=== PATIENT | female | born 1960 | race Caucasian/White ===

== ENCOUNTER 2017-05-13 15:25 | Emergency (ER) | payer OTHER ==
[~2017-05-13] VITALS: Ht 157.5 cm; Wt 72.5 kg
[~2017-05-13 15:25] MED LIST: ASPI-664 PO; HYD25 PO; MECL25TA2 PO; NITR-58 PO; ONDA4TAB35 PO; PHEN-538 PO; SIMV20TA PO
[2017-05-13 15:29] VITALS: Ht 157.5 cm; Wt 72.5 kg
[2017-05-13] MEDS ORDERED: ASPIRIN 325 MG TAB PO STA (16:17)
[2017-05-13 16:42] LABS: BASOPHILS % 0.4 % (0.0-2.0); EOSINOPHILS % 0.5 % (0.0-7.0); HEMATOCRIT 34.4 % (37.0-47.0); HEMOGLOBIN 11.3 g/dl (12.0-16.0); LYMPHOCYTES % 34.8 % (15.0-51.0); MEAN CORPUSCULAR HEMOGLOBIN 31.2 pg (29.0-33.0); MEAN CORPUSCULAR HGB CONC 32.8 g/dl (32.0-37.0); MEAN PLATELET VOLUME 9.2 fl (7.4-10.4); MONOCYTE # 0.5 10^3/ul (0.3-0.9); NEUTROPHILS % 55.9 % (39.0-77.0); PLATELET COUNT 187 10^3/UL (140-415); RED BLOOD COUNT 3.62 10^6/ul (4.20-5.40); RED CELL DISTRIBUTION WIDTH 12.3 % (11.5-14.5); WHITE BLOOD COUNT 5.6 10^3/ul (4.8-10.8)
[2017-05-13 16:49] LABS: ANION GAP 14 (8-16); BLOOD UREA NITROGEN 12 mg/dl (7-20); CALCIUM 9.1 mg/dl (8.4-10.2); CARBON DIOXIDE 22 mmol/L (21-31); CHLORIDE 108 mmol/L (97-110); CREATININE 0.73 mg/dl (0.44-1.00); GLUCOSE 94 mg/dl (70-220); POTASSIUM 3.3 mmol/L (3.5-5.1); SODIUM 141 mmol/L (135-144)
--- NOTE | 2017-05-13 16:51 | RADRPT ---
PROCEDURE: XR Chest 1 View. CLINICAL INDICATION: Chest pain TECHNIQUE: AP view of the chest was obtained. COMPARISON: None. FINDINGS: The heart size is within normal limits. Calcified atherosclerosis is noted in the aorta. Elevated r ight hemidiaphragm is identified. No consolidations are identified. No pneumothorax is seen. [place] us structures are intact. IMPRESSION: Calcified atherosclerosis in the aorta. Lated right hemidiaphragm. Clear lungs. RPTAT: AA .Viraj Hernandez MD, Date Time Electronically viewed and signed by .Viraj Hernandez MD, on 05/13/2017 16:50 .P/
[2017-05-13 17:01] LABS: B-TYPE NATRIURETIC PEPTIDE 58 PG/ML (0-125)
[2017-05-13] MEDS ORDERED: AMLO-147 PO (17:02)
[2017-05-13] MEDS ORDERED: LOSA25TA5 PO (17:03)
[2017-05-13] MEDS ORDERED: ASPI81TA50 PO (17:03)
[2017-05-13 17:10] LABS: TROPONIN-I < 0.012 ng/ml (0.00-0.12)
[2017-05-13] MEDS ORDERED: LIDOCAINE/MYLANTA 40 ML BTL PO ONE (18:00)
[2017-05-13] MEDS ORDERED: RANI150T9 PO (18:43)
--- NOTE | 2017-05-13 19:25 | ERD ---
ER Documentation Chief Complaint Date/Time DATE: 05/13/17 TIME: 19:20 Chief Complaint Sent from MD for eval chest pain and SOB with abnormal labs HPI This 56-year-old female presents for substernal chest pain described as a burning pain that is been on and off for 3 days. She has some shortness of breath with it. Denies nausea or vomiting. No radiation ROS All systems reviewed and are negative except as per history of present illness. Medications Home Meds Active Scripts Ranitidine Hcl* (Zantac*) 150 Mg Tablet, 150 MG PO BID, #60 TAB Prov:MARCELAJALYN 05/13/17 Reported Medications Aspirin (Aspir-Low) 81 Mg Tablet.dr, 81 MG PO DAILY 05/13/17 Losartan Potassium* (Losartan Potassium*) 25 Mg Tablet, 25 MG PO DAILY, TAB 05/13/17 Amlodipine Besylate* (Amlodipine Besylate*) 10 Mg Tablet, 10 MG PO DAILY, #30 TAB 05/13/17 Simvastatin* (Zocor*) 20 Mg Tablet, 20 MG PO HS, TAB 08/03/15 Discontinued Reported Medications Aspirin* (Aspirin* (EC)) 81 Mg Tablet.dr, 81 MG PO DAILY, TAB 08/03/15 Hydrochlorothiazide* (Hydrochlorothiazide*) 25 Mg Tab, 25 MG PO DAILY, TAB 08/03/15 Discontinued Scripts Phenazopyridine Hcl* (Pyridium*) 200 Mg Tab, 200 MG PO TID Y for DYSURIA, #3 TAB Prov:MICA MOHAN MD 08/03/15 Nitrofurantoin Monohyd Macrocr* (Macrobid*) 100 Mg Capsr, 100 MG PO HS for 7 Days Prov:MICA MOHAN MD 08/03/15 Ondansetron Hcl* (Zofran* ODT) 4 mg -ODT Tab.disper, 4 MG PO Q6 Y for NAUSEA AND /OR VOMITING, #10 TAB Prov:MICA MOHAN MD 08/03/15 Meclizine Hcl* (Antivert*) 25 Mg Tablet, 25 MG PO Q6H, #20 TAB Prov:MICA MOHAN MD 08/03/15 Allergies Allergies: Coded Allergies: No Known Allergy (Unverified , 05/13/17) PMhx/Soc History of Surgery: Yes (vaginal cysts?) Anesthesia Reaction: No Hx Neurological Disorder: No Hx Respiratory Disorders: No Hx Cardiac Disorders: Yes (HTN) Hx Psychiatric Problems: No Hx Miscellaneous Medical Probl: No Hx Alcohol Use: No Hx Substance Use: No Hx Tobacco Use: No Smoking Status: Never smoker Physical Exam Vitals Vital Signs Date Time Temp Pulse Resp B/P Pulse Ox O2 Delivery O2 Flow Rate FiO2 05/13/17 17:14 Nasal Cannula 05/13/17 15:29 98.3 83 20 140/67 98 Physical Exam Const: [] Mild distress Head: Atraumatic Eyes: Normal Conjunctiva ENT: Normal External Ears, Nose and Mouth. Neck: Full range of motion..~ No meningismus. Resp: Clear to auscultation bilaterally Cardio: Regular rate and rhythm, no murmurs Abd: Soft, non tender, non distended. Normal bowel sounds Skin: No petechiae or rashes Ext: No cyanosis, or edema Neur: Awake and alert Result Diagram: 05/13/17 1625 05/13/17 1625 Results 24 hrs Laboratory Tests Test 05/13/17 16:25 White Blood Count 5.610^3/ul Red Blood Count 3.6210^6/ul Hemoglobin 11.3g/dl Hematocrit 34.4% Mean Corpuscular Volume 95.0fl Mean Corpuscular Hemoglobin 31.2pg Mean Corpuscular Hemoglobin Concent 32.8g/dl Red Cell Distribution Width 12.3% Platelet Count 25550^3/UL Mean Platelet Volume 9.2fl Neutrophils % 55.9% Lymphocytes % 34.8% Monocytes % 8.0% Eosinophils % 0.5% Basophils % 0.4% Nucleated Red Blood Cells % 0.0/100WBC Neutrophils # (Manual) 3.110^3/ul Lymphocytes # 2.010^3/ul Monocytes # 0.510^3/ul Eosinophils # 0.010^3/ul Basophils # 0.010^3/ul Nucleated Red Blood Cells # 0.010^3/ul Sodium Level 141mmol/L Potassium Level 3.3mmol/L Chloride Level 108mmol/L Carbon Dioxide Level 22mmol/L Anion Gap 14 Blood Urea Nitrogen 12mg/dl Creatinine 0.73mg/dl Glucose Level 94mg/dl Calcium Level 9.1mg/dl Troponin I < 0.012ng/ml B-Type Natriuretic Peptide 58PG/ML Current Medications Medications (Trade) Dose Ordered Sig/Jeremy Route PRN Reason Start Time Stop Time Status Last Admin Dose Admin Aspirin (Aspirin) 325 mg ONCE STAT PO 05/13/17 16:17 05/13/17 16:18 DC 05/13/17 17:12 Miscellaneous Medication (Gi Cocktail (2)) 40 ml ONCE ONCE PO 05/13/17 18:00 05/13/17 18:01 DC 05/13/17 18:18 Procedures/MDM Atypical chest pain most suspicious for GERD. Patient was given an aspirin initially when she arrived. She was later given a GI cocktail which resolved her pain completely. She had a nonischemic EKG and negative troponin her blood. I have very low suspicion for acute coronary syndrome at this point. However I am going to discharge primary care follow-up and instructions to obtain outpatient echocardiogram. EKG interpretation: Normal sinus rhythm rate of 86, normal axis, QT of 471, no ST or T-wave changes concerning for acute ischemia. Nonspecific T-wave abnormality monitoring manager interpretation: Normal sinus rhythm without arrhythmia Chest x-ray interpretation: I see no acute process, no wide mediastinum, pneumothorax, no fractures, no pulmonary edema. Departure Diagnosis: Primary Impression: GERD (gastroesophageal reflux disease) Additional Impression: Chest pain Condition: Stable Patient Instructions: Chest Pain, Uncertain Cause Additional Instructions: Llame al doctor TERRY y nathaniel mario NAHEED PARA DENTRO DE 2-3 BATES. Consique mario naheed para un ECHOCARCARDIOGRAMA. Dgale a la secretaria que nosotros le instruimos hacer esta naheed.Avise o llame si zambrano condicin se empeora antes de la naheed. Regresa aqui si peor o no mejor. JALYN MEDRANO DO May 13, 2017 19:25
[2017-05-13 19:35] VITALS: BP 138/66; PULSE 80; RESP 20; TEMP 98.3
== END 2017-05-13 19:38 | disposition home or self-care (01) ==
LOC: E/R 15:25
DX: K21.9 Gastro-esophageal reflux disease without esophagitis (principal); I10 Essential (primary) hypertension; R06.02 Shortness of breath; Z79.82 Long term (current) use of aspirin
CPT/HCPCS: 36415; 71010; 80048; 83880; 84484; 85025; 93005; Z7502; Z7610

== ENCOUNTER 2017-05-15 23:07 | Inpatient (IN) | payer OTHER ==
[~2017-05-15] VITALS: Ht 152.4 cm; Wt 72.8 kg
[~2017-05-15 23:07] MED LIST changes: +AMLO-147 PO; -ASPI-664 PO; +ASPI81TA50 PO; -HYD25 PO; +LOSA25TA5 PO; -MECL25TA2 PO; -NITR-58 PO; -ONDA4TAB35 PO; -PHEN-538 PO; +RANI150T9 PO
[2017-05-16] VITALS (11 sets, daily range): BP systolic 109–132; BP diastolic 44–60; PULSE 73–90; RESP 20; TEMP 98.2; Ht 152.4 cm; Wt 72.8 kg
[2017-05-16] MEDS ORDERED: ASPIRIN 325 MG TAB PO STA (00:26)
--- NOTE | 2017-05-16 01:20 | RADRPT ---
PROCEDURE: XR Chest. CLINICAL INDICATION: Chest pain TECHNIQUE: Single AP portable chest. COMPARISON: 05/13/2017 Chest x-ray FINDINGS: The cardiomediastinal silhouette is within normal limits of size. 5 mm nodules in the left apex and right midlung zone compatible with pulmonary nodules and calcified granuloma. < Atherosclerotic calc ification of the aorta. The lungs are clear without pleural effusion or focal consolidation. No pne umothorax. The osseous structures and soft tissues are unremarkable. IMPRESSION: 1. No evidence for active cardiopulmonary disease. 2. 5 mm nodules in the left apex and right midlung zone suggestive of calcified granulomas. Short- term follow-up or CT correlation is recommended. RPTAT:AAJJ Physician Mavis Date Time Electronically viewed and signed by Physician Mavis on 05/16/2017 01:19 BANDAR/
[2017-05-16 01:21] LABS: BASOPHILS % 0.3 % (0.0-2.0); EOSINOPHILS # 0.1 10^3/ul (0.0-0.5); HEMATOCRIT 34.7 % (37.0-47.0); HEMOGLOBIN 11.4 g/dl (12.0-16.0); LYMPHOCYTES # 1.8 10^3/ul (0.8-2.9); LYMPHOCYTES % 24.5 % (15.0-51.0); MEAN CORPUSCULAR HEMOGLOBIN 32.1 pg (29.0-33.0); MEAN CORPUSCULAR HGB CONC 32.9 g/dl (32.0-37.0); MEAN CORPUSCULAR VOLUME 97.7 fl (82.0-101.0); MEAN PLATELET VOLUME 10.7 fl (7.4-10.4); MONOCYTE # 0.6 10^3/ul (0.3-0.9); MONOCYTES % 8.2 % (0.0-11.0); NEUTROPHILS % 65.7 % (39.0-77.0); PLATELET COUNT 192 10^3/UL (140-415); RED BLOOD COUNT 3.55 10^6/ul (4.20-5.40); RED CELL DISTRIBUTION WIDTH 12.5 % (11.5-14.5); WHITE BLOOD COUNT 7.2 10^3/ul (4.8-10.8)
[2017-05-16 01:45] LABS: ALBUMIN 4.5 g/dl (3.3-4.9); ALBUMIN/GLOBULIN RATIO 1.18; BILIRUBIN,INDIRECT 0.6 mg/dl (0-1.1); BILIRUBIN,TOTAL 0.6 mg/dl (0.2-1.3); CALCIUM 9.8 mg/dl (8.4-10.2); CREATININE 0.9 mg/dl (0.44-1.00); POTASSIUM 3.3 mmol/L (3.5-5.1); TOTAL PROTEIN 8.3 g/dl (6.1-8.1)
[2017-05-16 02:27] LABS: TROPONIN-I 0.198 ng/ml (0.00-0.12)
--- NOTE | 2017-05-16 03:26 | ERA ---
ER Documentation Chief Complaint Date/Time DATE: 05/16/17 TIME: 03:23 Chief Complaint pressure like chest pain since 15 minutes ago HPI 56-year-old female, no chest pain since 20 minutes prior to arrival to arrival in the emergency department. Pain was pressure-like, substernal, with no exacerbating factors. Mild diaphoresis. No nausea no vomiting no fevers no chills. Pain mild to moderate intensity. No previous cardiac history per patient. ROS All systems reviewed and are negative except as per history of present illness. Medications Home Meds Active Scripts Ranitidine Hcl* (Zantac*) 150 Mg Tablet, 150 MG PO BID, #60 TAB Prov:JALYN MEDRANO DO 05/13/17 Reported Medications Aspirin (Aspir-Low) 81 Mg Tablet.dr, 81 MG PO DAILY 05/13/17 Losartan Potassium* (Losartan Potassium*) 25 Mg Tablet, 25 MG PO DAILY, TAB 05/13/17 Amlodipine Besylate* (Amlodipine Besylate*) 10 Mg Tablet, 10 MG PO DAILY, #30 TAB 05/13/17 Simvastatin* (Zocor*) 20 Mg Tablet, 20 MG PO HS, TAB 08/03/15 Discontinued Reported Medications Aspirin* (Aspirin* (EC)) 81 Mg Tablet.dr, 81 MG PO DAILY, TAB 08/03/15 Hydrochlorothiazide* (Hydrochlorothiazide*) 25 Mg Tab, 25 MG PO DAILY, TAB 08/03/15 Discontinued Scripts Phenazopyridine Hcl* (Pyridium*) 200 Mg Tab, 200 MG PO TID Y for DYSURIA, #3 TAB Prov:MICA MOHAN MD 08/03/15 Nitrofurantoin Monohyd Macrocr* (Macrobid*) 100 Mg Capsr, 100 MG PO HS for 7 Days Prov:MICA MOHAN MD 08/03/15 Ondansetron Hcl* (Zofran* ODT) 4 mg -ODT Tab.disper, 4 MG PO Q6 Y for NAUSEA AND /OR VOMITING, #10 TAB Prov:MICA MOHAN MD 08/03/15 Meclizine Hcl* (Antivert*) 25 Mg Tablet, 25 MG PO Q6H, #20 TAB Prov:MICA MOHAN MD 08/03/15 Allergies Allergies: Coded Allergies: No Known Allergy (Unverified , 05/13/17) PMhx/Soc History of Surgery: Yes (tubal ligation) Anesthesia Reaction: No Hx Neurological Disorder: No Hx Respiratory Disorders: No Hx Cardiac Disorders: Yes (HTN) Hx Psychiatric Problems: No Hx Miscellaneous Medical Probl: Yes (cholesterol) Hx Alcohol Use: No Hx Substance Use: No Hx Tobacco Use: No Smoking Status: Never smoker Physical Exam Vitals Vital Signs Date Time Temp Pulse Resp B/P Pulse Ox O2 Delivery O2 Flow Rate FiO2 05/16/17 02:36 79 20 115/64 100 Room Air 05/16/17 00:37 98.1 85 18 139/71 Room Air 05/15/17 23:11 98.2 98 20 134/66 100 Physical Exam Const: [] Head: Atraumatic Eyes: Normal Conjunctiva ENT: Normal External Ears, Nose and Mouth. Neck: Full range of motion..~ No meningismus. Resp: Clear to auscultation bilaterally Cardio: Regular rate and rhythm, no murmurs Abd: Soft, non tender, non distended. Normal bowel sounds Skin: No petechiae or rashes Back: No midline or flank tenderness Ext: No cyanosis, or edema Neur: Awake and alert Psych: Normal Mood and Affect Result Diagram: 05/16/17 0034 05/16/17 0034 Results 24 hrs Laboratory Tests Test 05/16/17 00:34 White Blood Count 7.210^3/ul Red Blood Count 3.5510^6/ul Hemoglobin 11.4g/dl Hematocrit 34.7% Mean Corpuscular Volume 97.7fl Mean Corpuscular Hemoglobin 32.1pg Mean Corpuscular Hemoglobin Concent 32.9g/dl Red Cell Distribution Width 12.5% Platelet Count 72229^3/UL Mean Platelet Volume 10.7fl Neutrophils % 65.7% Lymphocytes % 24.5% Monocytes % 8.2% Eosinophils % 1.0% Basophils % 0.3% Nucleated Red Blood Cells % 0.0/100WBC Neutrophils # (Manual) 4.710^3/ul Lymphocytes # 1.810^3/ul Monocytes # 0.610^3/ul Eosinophils # 0.110^3/ul Basophils # 0.010^3/ul Nucleated Red Blood Cells # 0.010^3/ul Sodium Level 141mmol/L Potassium Level 3.3mmol/L Chloride Level 106mmol/L Carbon Dioxide Level 24mmol/L Anion Gap 14 Blood Urea Nitrogen 16mg/dl Creatinine 0.90mg/dl Glucose Level 97mg/dl Calcium Level 9.8mg/dl Total Bilirubin 0.6mg/dl Direct Bilirubin 0.00mg/dl Indirect Bilirubin 0.6mg/dl Aspartate Amino Transf (AST/SGOT) 38IU/L Alanine Aminotransferase (ALT/SGPT) 31IU/L Alkaline Phosphatase 64IU/L Troponin I 0.198ng/ml B-Type Natriuretic Peptide 53PG/ML Total Protein 8.3g/dl Albumin 4.5g/dl Globulin 3.80g/dl Albumin/Globulin Ratio 1.18 Current Medications Medications (Trade) Dose Ordered Sig/Jeremy Route PRN Reason Start Time Stop Time Status Last Admin Dose Admin Aspirin (Aspirin) 325 mg ONCE STAT PO 05/16/17 00:26 05/16/17 00:27 DC 05/16/17 00:48 Procedures/MDM EKG: Rate/Rhythm: [Normal Sinus Rhythm] QRS, ST, T-waves: [No changes consistent w/ acute ischemia] Impression: [No evidence of ischemia or arrhythmia] Chest X-ray 1V Interpreted by me: Soft Tissue: No acute abnormalities Bones: No acute abnormalities Mediastinum/Cardiac Silhouette/Lungs: [No acute abnormalities] Critical Care: Time: 45 minutes Treatments/Evaluations: Close monitoring and treatment of unstable vital signs, cardiorespiratory, and neurologic status, while maintaining tight balance of fluid, respiratory, and cardiac interventions. Patient's symptoms are concerning for cardiac cause will require inpatient workup and continuous monitoring. Further w/u for ischemia, arrhythmia, PE or dissection will be deferred to the inpatient team. Accepting Care Team: Current data and ongoing care discussed. Time: 3:30 AM Primary Provider: Hospitalist consulting: [XOXOXO] Outstanding Data: none Departure Diagnosis: Primary Impression: Chest pain Qualified Code: I20.0 - Unstable angina pectoris Condition: Serious PATJEANA BlackwellMeseret May 16, 2017 03:26
[2017-05-16] MEDS ORDERED: ACETAMINOPHEN 325 MG TAB PO PRN (07:00)
--- NOTE | 2017-05-16 07:12 | HP ---
Date/Time of Note Date/Time of Note DATE: 05/16/17 TIME: 07:07 Assessment/Plan VTE Prophylaxis VTE Prophylaxis Intervention: heparin Lines/Catheters IV Catheter Type (from Nrsg): Saline Lock Assessment/Plan Assessment/Plan Assessment 56-year-old female with a history of hypertension, dyslipidemia, GERD presented to the ER was pressure-like chest pain and is now diagnosed with NSTEMI PLAN Continue telemetry monitoring Continue home medication which includes aspirin, statin, ARB. Will add nitro and as needed morphine. Supplemental oxygen Trend troponin 2D echo and cardiology consult Check A1c, fasting lipid and TSH HPI/ROS Admit Date/Time Admit Date/Time May 16, 2017 at 03:14 Hx of Present Illness This is a 56-year-old female with a history of hypertension, dyslipidemia, GERD who presented to the emergency department complaining of chest pain. Pain is located in the mid chest and left-sided with radiation to the left arm and discussed pressure-like. Pain started a few hours prior to ER arrival while she was sitting at home watching TV. When she presented to the ER, first troponin was found to be elevated 0.198. EKG was no ST-T wave abnormalities. Patient actually came to the ER 3 days ago complaining of burning type chest pain and was discharged from the ER. . PMH/Family/Social Past Medical History Medical History: high cholesterol, hypertension Social History Alcohol Use: none Smoking Status: Never smoker Drug Use: none Exam/Review of Systems Vital Signs Vitals Vital Signs Date Time Temp Pulse Resp B/P Pulse Ox O2 Delivery O2 Flow Rate FiO2 05/16/17 06:16 80 05/16/17 06:15 97.8 20 117/58 05/16/17 05:01 100 Room Air Exam Constitutional: alert, oriented, well developed Head: atraumatic, normocephalic Eyes: EOMI, PERRL Respiratory: clear to auscultation, normal air movement Cardiovascular: nl pulses, regular rate and rhythm Gastrointestinal: non-tender, soft Extremities: normal pulses Labs Result Diagram: 05/16/17 0034 05/16/17 0034 Medications Medications Current Medications Amlodipine Besylate (Norvasc) 10 mg DAILY PO ; Start 05/16/17 at 09:00 Aspirin (Halfprin) 81 mg DAILY PO ; Start 05/16/17 at 09:00 Losartan Potassium (Cozaar) 25 mg DAILY PO ; Start 05/16/17 at 09:00 Ranitidine HCl (Zantac) 150 mg BID PO ; Start 05/16/17 at 09:00 Atorvastatin Calcium (Lipitor) 20 mg HS PO ; Start 05/16/17 at 21:00 Nitroglycerin (Nitroglycerin (Sl Tab) 0.4 Mg) 1 tab Q5M PRN SL ANGINA; Start at 07:00; Status UNV Morphine Sulfate (morphine) 2 mg Q4H PRN IV PAIN LEVEL 7-10; Start 05/16/17 at 07:00; Status UNV Acetaminophen (Tylenol Tab) 650 mg Q6H PRN PO PAIN AND OR ELEVATED TEMP; Start 05/16/17 at 07:00; Status UNV JEANA WHITTEN MD May 16, 2017 07:12
[2017-05-16] MEDS: RANITIDINE 150 MG TAB PO SCH ×2 (08:17→21:34)
[2017-05-16] MEDS: NITROGLYCERIN (SL) 0.4 MG TAB SL PRN ×2 (08:18→14:00)
[2017-05-16] MEDS ORDERED: LOSARTAN 25 MG TAB PO SCH (09:00)
[2017-05-16] MEDS ORDERED: AMLODIPINE 10 MG TAB PO SCH (09:00)
[2017-05-16] MEDS: ASPIRIN (EC) 81 MG TAB PO SCH (10:11)
[2017-05-16] MEDS ORDERED: POTASSIUM CHLORIDE (SR) 20 MEQ TAB PO STA (10:51)
[2017-05-16] MEDS ORDERED: HEPARIN 1000 UNITS/ML 10 ML INJ IV ONE (11:00)
[2017-05-16] MEDS ORDERED: HEPARIN 1000 UNITS/ML 10 ML INJ IV PRN (11:00)
[2017-05-16] MEDS: METOPROLOL 25 MG TAB PO SCH ×2 (11:19→21:34)
--- NOTE | 2017-05-16 11:26 | CONS ---
DATE OF ADMISSION: 05/16/2017 DATE OF CONSULTATION: 05/16/2017 HISTORY OF PRESENT ILLNESS: Miss Hagan is a 56-year-old woman with history of hypertension, hyperlipidemia, who presented on 05/13/2017 with chest burning which was thought to be more typical of esophageal reflux. She again presented yesterday with a pressure-like feeling in her chest, which occurred at rest up to 9/10 in severity, radiating to her arm and jaw with associated nausea. Troponins were found to be slightly elevated. Currently she is chest pain free and resting comfortably in a hospital bed. PAST MEDICAL HISTORY: Hypercholesterolemia, hypertension, hyperlipidemia. SOCIAL HISTORY: Nonsmoker. No alcohol use. PHYSICAL EXAMINATION: GENERAL APPEARANCE: She is in no distress. VITAL SIGNS: Temperature 97, pulse 75, blood pressure 114/56. NECK: No jugular venous distention. LUNGS: Clear to auscultation bilaterally. HEART: Regular rate and rhythm. ABDOMEN: Soft, nontender, nondistended. EXTREMITIES: No edema. LABORATORY: Hematocrit 34.7, platelet count 192,000, sodium 141, potassium 3.3, BUN 16, creatinine 0.9. Troponin peaked at 0.19. EKG shows ST depression in inferolateral leads. ASSESSMENT: Chest pain with associated rise in troponin and abnormal EKG. Echocardiogram is pending. Miss Hagan will likely need an angiogram. At this time will start her on fractionated heparin. I have discussed the possibility of an angiogram with Dr. Bauman. We will schedule as soon as feasible. I will stop amlodipine and in its place put on metoprolol. Angiogram discussed with family and patient. Dictated By: Murphy Redman MD /michelle/dusty /Document#: [id number]
[2017-05-16 11:47] LABS: BASOPHILS % 0.3 % (0.0-2.0); EOSINOPHILS % 0.5 % (0.0-7.0); HEMATOCRIT 35.2 % (37.0-47.0); HEMOGLOBIN 11.4 g/dl (12.0-16.0); LYMPHOCYTES # 1.6 10^3/ul (0.8-2.9); LYMPHOCYTES % 28.2 % (15.0-51.0); MEAN CORPUSCULAR HEMOGLOBIN 30.8 pg (29.0-33.0); MEAN CORPUSCULAR HGB CONC 32.4 g/dl (32.0-37.0); MEAN CORPUSCULAR VOLUME 95.1 fl (82.0-101.0); MEAN PLATELET VOLUME 9.6 fl (7.4-10.4); MONOCYTE # 0.5 10^3/ul (0.3-0.9); MONOCYTES % 8.5 % (0.0-11.0); NEUTROPHILS % 62.3 % (39.0-77.0); PLATELET COUNT 185 10^3/UL (140-415); RED CELL DISTRIBUTION WIDTH 12.6 % (11.5-14.5); WHITE BLOOD COUNT 5.8 10^3/ul (4.8-10.8)
[2017-05-16 12:18] LABS: INR 0.99; PROTIME 13.1 Sec (12.2-14.2)
[2017-05-16 12:19] LABS: PARTIAL THROMBOPLASTIN TIME 24.8 Sec (25.0-35.0)
[2017-05-16] MEDS: HEPARIN 25000 UNITS/250 ML 250 ML IV SCH (12:45)
--- NOTE | 2017-05-16 13:34 | QN ---
Documentation Comment S: Patient seen and examined at bedside. at bedside as well and all questions addressed and answered. Patient still c/o sternal chest pressure, 1/ 10 in severity with associated SOB and radiation to left side. +dizziness and nausea but denies vomiting, abdominal issues, or LOC. O: general: awake and alert, oriented CVS: regular rate and rhythm, no murmurs appreciated, chest pain nonreproducible Lungs: clear to ausculation b/l. no wheezes, rales, or rhonchi GI: soft, nondistended, nontender, normal BS Extremities: moving all limbs, no cyanosis, edema, or clubbing A/P 1. NSTEMI - Spoke with Cardiology, Dr. Redman and appreciate recommendations. Will plan for cardiac cath due to rising troponin tomorrow. NPO after midnight - ECHO pending - continue on heparin and metoprolol - advised patient to inform staff if chest pain worsens - Nitro, morphine PRN for pain 2. GERD - Zantac as needed for reflux 3. dyslipidemia - continue on statin - will check lipid panel CORETTA SUTTON MD May 16, 2017 13:34
--- NOTE | 2017-05-16 13:55 | RADRPT ---
Echocardiogram Report Patient Name: TRIPP CARR Gender: Female Date: 1960 Study Date: 16-May-2017 Mailhouse Operator: Leonor Kramer [facility] Location: [id number] Ref. Physician: JEANA WHITTEN Quality: Good Procedures: Transthoracic echocardiogram with complete 2D, M-Mode, and doppler examination. Indications: Chest Pain. 2D/M Mode Doppler Measurement Value Normal Ranges Measurement Value Normal Ranges LVIDd 2D 4.5 3.5 - 5.6 cm AV Peak Baldo 1.7 m/sec LVIDs 2D 2.1 2.1 - 4.1 cm AV Peak PG 12.0 mmHg FS 2D 53.5 % LVOT Peak PG 5.0 mmHg LVPWd 2D 1.2 0.6 - 1.1 cm MV E Peak Baldo 0.7 m/sec IVSd 2D 1.2 0.6 - 1.1 cm MV A Peak Baldo 1.0 m/sec IVS/LVPW 2D 1.0 MV E/A 0.7 AoR Diam 2D 2.4 2.0 - 3.7 cm MV Decel Time 176 msec LA/Ao 2D 2 0 - 1 MV E/A 0.7 EDV 2D 93.6 cm3 TR Peak Baldo 2.4 m/sec ESV 2D 9.4 cm3 TR Peak PG 23.0 mmHg LA Dimen 2D 4.0 2.3 - 4.0 cm RVSP 33.0 mmHg Findings Left Ventricle: Normal left ventricular systolic function. Normal left ventricular cavity size. Mild concentric left ventricular hypertrophy. Ejection fraction is visually estimated at 60 %. Tissue Doppler/Mitral Doppler indices are consistent with impaired relaxation (Stage I diastolic dysfunction). Right Ventricle: Normal right ventricular size. Normal right ventricular systolic function. Left Atrium: There is mild enlargement of left atrium. Right Atrium: The right atrium is normal in size. Mitral Valve: Mitral valve leaflets appear mildly thickened. Mild mitral annular calcification. Trace mitral regurgitation. Aortic Valve: No significant aortic stenosis or insufficiency. Aortic cusps appear mildly calcified. Tricuspid Valve: Normal appearance of the tricuspid valve. Estimated peak PA systolic pressure 33 mmHg. There is trace tricuspid regurgitation. Pulmonic Valve: Normal pulmonic valve appearance. Pericardium: Normal pericardium with no significant pericardial effusion. Aorta: Normal aortic root. IVC: Normal size and normal respiratory collapse consistent with normal right atrial pressure. Conclusions 1.Normal left ventricular systolic function. Normal left ventricular cavity size. Mild concentric left ventricular hypertrophy. Ejection fraction is visually estimated at 60 %. Tissue Doppler/Mitral Doppler indices are consistent with impaired relaxation (Stage I diastolic dysfunction). Electronically Signed By: Murphy Redman 16-May-2017 13:55:17 -0700 Patient Name: TRIPP CARR Study Date: 16-May-2017 [id number]
[2017-05-16] MEDS ORDERED: ATORVASTATIN 20 MG TAB PO SCH (21:00)
[2017-05-17] VITALS (21 sets, daily range): BP systolic 65–127; BP diastolic 39–67; PULSE 61–93; RESP 14–20
[2017-05-17] MEDS: HEPARIN 25000 UNITS/250 ML 250 ML IV SCH ×4 (01:00→15:40)
[2017-05-17] MEDS: morphine 2 MG INJ IV PRN ×2 (06:16→21:21)
[2017-05-17 07:35] LABS: BASOPHILS % 0.2 % (0.0-2.0); EOSINOPHILS # 0.1 10^3/ul (0.0-0.5); EOSINOPHILS % 1.1 % (0.0-7.0); HEMATOCRIT 35.5 % (37.0-47.0); HEMOGLOBIN 11.6 g/dl (12.0-16.0); LYMPHOCYTES # 2.6 10^3/ul (0.8-2.9); LYMPHOCYTES % 43.3 % (15.0-51.0); MEAN CORPUSCULAR HEMOGLOBIN 31.5 pg (29.0-33.0); MEAN CORPUSCULAR HGB CONC 32.7 g/dl (32.0-37.0); MEAN CORPUSCULAR VOLUME 96.5 fl (82.0-101.0); MEAN PLATELET VOLUME 9.4 fl (7.4-10.4); MONOCYTE # 0.6 10^3/ul (0.3-0.9); MONOCYTES % 10.2 % (0.0-11.0); NEUTROPHILS % 44.9 % (39.0-77.0); PLATELET COUNT 192 10^3/UL (140-415); RED BLOOD COUNT 3.68 10^6/ul (4.20-5.40); RED CELL DISTRIBUTION WIDTH 12.4 % (11.5-14.5); WHITE BLOOD COUNT 6.1 10^3/ul (4.8-10.8)
--- NOTE | 2017-05-17 07:41 | CONS ---
Date/Time of Note Date/Time of Note DATE: 05/17/17 TIME: 07:38 Consult Date/Type/Reason Admit Date/Time May 16, 2017 at 03:14 Initial Consult Date Type of Consultation: CARDIOLOGY Subjective Discussed with staff rhythms he was reviewed. Discussed with patient daughter. Patient has an episode of chest pain last night dissolving nitroglycerin currently chest pain-free now. OBJECITIVE: General: no acute distress HEENT: NC/AT. pupils are equal. round. NECK: NO JVD. no stridor. CV: RRR. systolic murmur; no gallop or rubs. PULM: no wheezing or rhonchi. GI: SOFT, NT, ND, no rebound or guarding Extremity: trace B/L LE edema. no clubbing. neuro: awake and alert, OX3. Psych: calm and pleasant rectal: deferred : normal Objective Vital Signs Date Time Temp Pulse Resp B/P Pulse Ox O2 Delivery O2 Flow Rate FiO2 05/17/17 04:02 66 05/17/17 04:00 97.9 19 119/60 99 05/16/17 10:00 Nasal Cannula 2.0 Intake and Output 05/16/17 05/16/17 05/17/17 15:00 23:00 07:00 Intake Total 801 ml 352.5 ml Balance 801 ml 352.5 ml Results/Medications Result Diagram: 05/17/17 0700 05/16/17 0034 Results 24 hrs Laboratory Tests Test 05/16/17 08:01 05/16/17 11:28 05/16/17 15:00 05/16/17 19:09 Troponin I 1.650 *H 1.760 *H White Blood Count 5.8 Red Blood Count 3.70 L Hemoglobin 11.4 L Hematocrit 35.2 L Mean Corpuscular Volume 95.1 Mean Corpuscular Hemoglobin 30.8 Mean Corpuscular Hemoglobin Concent 32.4 Red Cell Distribution Width 12.6 Platelet Count 185 Mean Platelet Volume 9.6 Neutrophils % 62.3 Lymphocytes % 28.2 Monocytes % 8.5 Eosinophils % 0.5 Basophils % 0.3 Nucleated Red Blood Cells % 0.0 Neutrophils # (Manual) 3.6 Lymphocytes # 1.6 Monocytes # 0.5 Eosinophils # 0.0 Basophils # 0.0 Nucleated Red Blood Cells # 0.0 Prothrombin Time 13.1 Prothrombin Time Ratio 1.0 INR International Normalized Ratio 0.99 Activated Partial Thromboplast Time 24.8 L 57.6 H Test 05/17/17 00:52 05/17/17 07:00 Activated Partial Thromboplast Time 54.8 H White Blood Count 6.1 Red Blood Count 3.68 L Hemoglobin 11.6 L Hematocrit 35.5 L Mean Corpuscular Volume 96.5 Mean Corpuscular Hemoglobin 31.5 Mean Corpuscular Hemoglobin Concent 32.7 Red Cell Distribution Width 12.4 Platelet Count 192 Mean Platelet Volume 9.4 Neutrophils % 44.9 Lymphocytes % 43.3 Monocytes % 10.2 Eosinophils % 1.1 Basophils % 0.2 Nucleated Red Blood Cells % 0.0 Neutrophils # (Manual) 2.7 Lymphocytes # 2.6 Monocytes # 0.6 Eosinophils # 0.1 Basophils # 0.0 Nucleated Red Blood Cells # 0.0 Medications Current Medications Aspirin (Halfprin) 81 mg DAILY PO Last administered on 05/16/17 10:11; Admin Dose 81 MG; Start 05/16/17 at 09:00 Losartan Potassium (Cozaar) 25 mg DAILY PO Last administered on 05/16/17 10:11 ; Admin Dose 25 MG; Start 05/16/17 at 09:00 Ranitidine HCl (Zantac) 150 mg BID PO Last administered on 05/16/17 21:34; Admin Dose 150 MG; Start 05/16/17 at 09:00 Atorvastatin Calcium (Lipitor) 20 mg HS PO Last administered on 05/16/17 21:34 ; Admin Dose 20 MG; Start 05/16/17 at 21:00 Nitroglycerin (Nitroglycerin (Sl Tab) 0.4 Mg) 1 tab Q5M PRN SL ANGINA Last administered on 05/16/17 14:00; Admin Dose 1 TAB; Start 05/16/17 at 07:00 Morphine Sulfate (morphine) 2 mg Q4H PRN IV PAIN LEVEL 7-10 Last administered on 05/17/17 06:16; Admin Dose 2 MG; Start 05/16/17 at 07:00 Acetaminophen (Tylenol Tab) 650 mg Q6H PRN PO PAIN AND OR ELEVATED TEMP; Start 05/16/17 at 07:00 Metoprolol Tartrate (Lopressor) 25 mg BID PO Last administered on 05/16/17 21: 34; Admin Dose 25 MG; Start 05/16/17 at 11:00 Assessment/Plan Chief Complaint/Hosp Course 1. NSTEMI 2. abnormal ECG due to above 3. HTN 4. Dyslipidemia 5. obesity 6. hypo K Continue with aspirin and heparin drip for now. Continue the beta-loida. Statins. replace electrolytes Plan for left heart catheterization sedating right and left coronary angiogram Cocker for possible percutaneous coronary intervention for today. Risks benefits alternatives of procedure discussed with the patient and daughter in detail. Risks including not limited to risks of infection vascular complications bleeding complications NE stroke arrhythmia , etc are discussed with the patient and daughter in detail. Patient has consented to the procedure. Patient will be taken to the [facility] at the Employee Benefits Specialist is available. Currently Employee Benefits Specialist his schedule is booked at the moment. Probably will be done this evening. THANK YOU NATALY GAN MD [facility] Problems: NATALY GAN MD May 17, 2017 07:41
[2017-05-17] MEDS ORDERED: DEXTROSE 5%-0.9% NACL 1,000 ML IV SCH (08:00)
[2017-05-17] MEDS: METOPROLOL 25 MG TAB PO SCH ×2 (08:09→22:00)
[2017-05-17] MEDS: ASPIRIN (EC) 81 MG TAB PO SCH (08:10)
[2017-05-17] MEDS: RANITIDINE 150 MG TAB PO SCH ×2 (08:10→21:24)
[2017-05-17 08:17] LABS: CALCIUM 9.2 mg/dl (8.4-10.2); CHOL/HDL RATIO 3.4 RATIO; CREATININE 0.74 mg/dl (0.44-1.00); PHOSPHORUS 4.1 mg/dl (2.5-4.9); POTASSIUM 3.7 mmol/L (3.5-5.1)
--- NOTE | 2017-05-17 12:04 | PN ---
Date/Time of Note Date/Time of Note DATE: 05/17/17 TIME: 12:01 Assessment/Plan VTE Prophylaxis VTE Prophylaxis Intervention: heparin Lines/Catheters IV Catheter Type (from Nrs): Peripheral IV Urinary Cath still in place: No Assessment/Plan Assessment/Plan 1. NSTEMI - Patient seen by cardiology this am. Continue on BB, Aspirin, statin, and heparin drip - Awaiting availability in cathode builder but anticipate left heart catheterization sedating right and left coronary angiogram Cocker for possible percutaneous coronary intervention for today - Continue monitoring - Nitro and morphine for pain relief 2. GERD - Zantac as needed for reflux 3. dyslipidemia - continue on statin Spent >30 mins this am with patient and daughter answering all questions and addressing all concerns regarding patient's health and risk/benefits of cardiac cath. Will provide patient/family list of heart healthy foods prior to discharge. Counseled about proper diet, low sodium intake, and improving exercise routine. Subjective 24 Hr Interval Summary Free Text/Dictation Patient seen and examined with daughter at bedside. Patient states last night, she was experiencing sternal chest pain, pressure like but also sharp in nature which was relieved with Nitro. She also co SOB with excessive talking. She is nervous about the cardiac cath schedule but agreeable to the procedure. Denies any chest pain, LOC, dizziness, nausea, vomiting, or abdominal issues. Exam/Review of Systems Vital Signs Vitals Vital Signs Date Time Temp Pulse Resp B/P Pulse Ox O2 Delivery O2 Flow Rate FiO2 05/17/17 08:00 65 05/17/17 07:58 98.2 20 125/67 98 05/16/17 10:00 Nasal Cannula 2.0 Intake and Output 05/16/17 05/16/17 05/17/17 14:59 22:59 06:59 Intake Total 801 ml 352.5 ml Balance 801 ml 352.5 ml Exam General: No acute distress, awake and alert HEENT: NC/AT. pupils are equal. round. no scleral icterus CV: RRR. systolic murmur; no gallop or rubs. PULM: no wheezing or rhonchi. GI: SOFT, NT, ND, no rebound or guarding Extremity: trace B/L LE edema. no clubbing. Results Result Diagram: 05/17/17 0700 05/17/17 0700 Results 24 hrs Laboratory Tests Test 05/16/17 15:00 05/16/17 19:09 05/17/17 00:52 05/17/17 07:00 Troponin I 1.760 *H Activated Partial Thromboplast Time 57.6 H 54.8 H 56.5 H White Blood Count 6.1 Red Blood Count 3.68 L Hemoglobin 11.6 L Hematocrit 35.5 L Mean Corpuscular Volume 96.5 Mean Corpuscular Hemoglobin 31.5 Mean Corpuscular Hemoglobin Concent 32.7 Red Cell Distribution Width 12.4 Platelet Count 192 Mean Platelet Volume 9.4 Neutrophils % 44.9 Lymphocytes % 43.3 Monocytes % 10.2 Eosinophils % 1.1 Basophils % 0.2 Nucleated Red Blood Cells % 0.0 Neutrophils # (Manual) 2.7 Lymphocytes # 2.6 Monocytes # 0.6 Eosinophils # 0.1 Basophils # 0.0 Nucleated Red Blood Cells # 0.0 Sodium Level 142 Potassium Level 3.7 Chloride Level 108 Carbon Dioxide Level 25 Anion Gap 13 Blood Urea Nitrogen 16 Creatinine 0.74 Glucose Level 93 Calcium Level 9.2 Phosphorus Level 4.1 Albumin 4.0 Triglycerides Level 168 H Cholesterol Level 176 LDL Cholesterol, Calculated 91 HDL Cholesterol 51 Cholesterol/HDL Ratio 3.4 Medications Medications Current Medications Aspirin (Halfprin) 81 mg DAILY PO Last administered on 05/17/17 08:10; Admin Dose 81 MG; Start 05/16/17 at 09:00 Ranitidine HCl (Zantac) 150 mg BID PO Last administered on 05/17/17 08:10; Admin Dose 150 MG; Start 05/16/17 at 09:00 Nitroglycerin (Nitroglycerin (Sl Tab) 0.4 Mg) 1 tab Q5M PRN SL ANGINA Last administered on 05/16/17 14:00; Admin Dose 1 TAB; Start 05/16/17 at 07:00 Morphine Sulfate (morphine) 2 mg Q4H PRN IV PAIN LEVEL 7-10 Last administered on 05/17/17 06:16; Admin Dose 2 MG; Start 05/16/17 at 07:00 Acetaminophen (Tylenol Tab) 650 mg Q6H PRN PO PAIN AND OR ELEVATED TEMP; Start 05/16/17 at 07:00 Metoprolol Tartrate 25 mg 25 mg BID PO Last administered on 05/17/17 08:09; Admin Dose 25 MG; Start 05/16/17 at 11:00 Dextrose/Sodium Chloride (D5-NS) 1,000 ml @ 50 mls/hr Q20H IV Last administered on 05/17/17t 08:30; Admin Dose 50 MLS/HR; Start 05/17/17 at 08:00; Stop 05/17/17 at 17:59 Atorvastatin Calcium (Lipitor) 80 mg HS PO ; Start 05/17/17 at 21:00 CORETTA SUTTON MD May 17, 2017 12:04
[2017-05-17] MEDS: NITROGLYCERIN (SL) 0.4 MG TAB SL PRN ×2 (12:32→21:20)
[2017-05-17] MEDS ORDERED: LIDOCAINE 1% (MDV) 20 ML INJ ONE (16:28)
[2017-05-17] MEDS ORDERED: FENTAnyl 50 MCG/ML VIAL ONE ×2 (16:29→19:09)
[2017-05-17] MEDS ORDERED: MIDAZOLAM 1 MG/ML 2 ML INJ ONE (16:29)
[2017-05-17] MEDS ORDERED: VERAPAMIL 5 MG INJ ONE (16:48)
[2017-05-17] MEDS ORDERED: TICAGRELOR 90 MG TABLET ONE (17:11)
[2017-05-17] MEDS ORDERED: BIVALIRUDIN 250MG /NS 50 ML 50 ML IVPB ONE ×3 (17:11→19:57)
[2017-05-17] MEDS ORDERED: IOHEXOL 350MG/ML 50 ML BTL ONE ×3 (17:46→17:50)
[2017-05-17] MEDS ORDERED: IODIXANOL LOCM 100 ML BTL ONE ×4 (17:46→19:40)
[2017-05-17] MEDS ORDERED: NITROGLYCERIN (IC) 100 MCG/ML INJ ONE ×2 (17:48→18:23)
[2017-05-17] MEDS ORDERED: SOD CHLORIDE 0.9% 500 ML ONE (19:41)
[2017-05-17] MEDS ORDERED: BIVALIRUDIN 250 MG in SOD CHLORIDE 0.9% 500 ML IV SCH (20:30)
[2017-05-17] MEDS ORDERED: ONDANSETRON 4 MG INJ ONE (20:32)
[2017-05-17] MEDS: SOD CHLORIDE 0.9% 1,000 ML IV SCH (20:45)
--- NOTE | 2017-05-17 20:47 | OPR ---
Date/Time of Note Date/Time of Note DATE: 05/17/17 TIME: 20:21 Operative Report Procedure Date: May 17, 2017 Operative\Procedure Findings Car Salesperson: Nataly Bauman MD Indication: NSTEMI with recurrent post VT angina. Procure performed: #1 left heart catheterization and selective right and left coronary angiogram. #2 Right femoral angiogram 3. very complicated but Successful PTCA and stenting of ostial LAD using a 3.25X18 mm alpine HAYDER 4. Located but successful PTCA and stenting of the ostium and proximal left circumflex artery using TWO 2.5 x 12 mm Zions drug-eluting stent. Successful PTCA stenting of the distal left circumflex artery using a 2.5 x 12 mm Synergy drug-eluting stent 5 . Thrombectomy of LAD using a pronto device. 6. Moderate sedation for more than 210 minutes Findings: 1. Left main: has 20% ostial stenosis and birfurcates to LAD & LCX. 2. LAD: has 50% ostial ulcerated plaque and 99% stenosis at proximal LAD, and 40 % stenosis at mid LAD. 3. Left circumflex artery: is nondominant. it had initially 50% ostial stenosis but after plaque shift/ stenting of LAD it became completely occluded. ( ---> 0 % post PCI ). 4. RCA: is dominant. it has probably 20% ostial ( but difficult to assess). Procedure in detail: Written informed consent with obtained after risks benefits and alternatives discussed with the patient in detail. risks including but not limited to risk of infection vascular complications, bleeding complications, VT stroke arrhythmia renal failure at even were discussed with the patient in detail. Patient was brought into the cardiac laboratory analyst and placed in supine position. Right and left groin area was prepped and draped in regular sterile fashion and then he was in anesthetized using 1% lidocaine. Right femoral artery was cannulated and using modified seldinger technique a 6 Ukrainian sheath was placed in the right femoral artery. Right femoral angiogram was performed. JL4 catheter was advanced and engaged into the left main coronary artery and angiographic view was obtained. The JR4 catheter was advanced and engaged right coronary artery angiographic view was obtained. JL 4 was advanced to engage the left ventricle hemodynamics as recorded by pullback aortic pressure was measured. At this time we decided to perform PCI of the LAD. A JL4 guiding head was advanced to engage the LAD artery. BMW wire was used and advanced across the lesion and placed distal to the artery. I used a 2.5x12 mm balloon which was placed across the lesion and predilated the vessel. poor flow was noted at this time with diffuse clot in LAD. I used a pronto and thrombectomy was done multiple times. same balloon was used and more PTCA was done until flow was restored. more heparin was given just in case anticoagulation was not enough with angiomax. finally I used a 3.25x 18 mm xience alpine HAYDER across the ostial LAD and deployed it at 12 atmosphere. it was then post dilated using a 3.5 x 8 mm noncompliant balloon. At this point angiographic view was obtained. LAD appeared to be patent. However there appeared to be a plaque shift and dissection zone in the ostium/ proximal left circumflex artery. I decided to angioplasty and stent this area as well. BMW wire was used to cross into the distal left circumflex artery. 2.5 x 12 mm balloon was used and this area was predilated. Angiographic view was obtained. I try to to advance a stent. 3 oh by 24 mm stent was tried to advance however could not get into the ostium of the left circumflex artery probably secondary to the sharp angulation as well as the stent in the LAD. Yennifer wire was used as well however again could not get into this vessel. With multiple attempts at wire and the guide was pushed back. I just decided to change the guide to the 8 Ukrainian guide for better support. T10 guide were changed to an 8 Ukrainian system I used a XB LAD 3 8 Ukrainian guide which was advanced to engage the left main coronary artery. [place] was obtained. Patient was having chest pain at this time and was noted that the left sigmoid artery was completely occluded. An 0.14 wire was used clinically and able to advance and cross into the left circumflex artery distal left cecum was artery. Multiple angioplasty was done. Flow was restored again. I tried different techniques to try to advance the stent into this artery which was unsuccessful. Even a guideline was used and could not advance the stent. Finally with great difficulty and use of yennifer wire I was able to advance a 2.5 x 12 mm drug- eluting stent across the proximal left cecum and the artery and deployed at 12 jimmy. Then I used another 2.5 x 12 mm drug-eluting stent also across the ostium of the left circumflex artery. A BMW wire was used present to the LAD to support that stent. While it deployed stent in the left cecum was recorded at 12 g per inflated to 3 noncompliant balloon in the LAD stent for atmosphere. Finally I performed a kissing angioplasty of the LAD and left circumflex stent. The view was obtained appeared that the distal left cecum artery also another 95% stenosis at this time. 2.5 x 12 mm balloon was used and advanced across into this lesion. Predilated the vessel. I tried to advance a 2.5 x 60 mm stent which was unsuccessful with and without use of yennifer wire. Finally I was able to advance a 2.5 x 12 mm Synergy drug-eluting stent which was a presacral of the distal left cecum was artery and deployed at 12 jimmy. Final angiographic view was obtained which showed RAFAEL-3 flow no evidence of dissection and no significant residual stenosis at the site of the stent. Patient tolerated the procedure well with no complication. Patient was transferred to ICU in stable condition. Conclusions: complicated but Successful PTCA stenting of the ostial LAD/ LCX from complete occlusion to no significant residual stenosis . Recommendations: Aggressive medical therapy. aspirin indefinitely dual antiplatlet therapy with brilinta ICU care overnight. NATALY BAUMAN MD May 17, 2017 20:47
[2017-05-17] MEDS ORDERED: PANTOPRAZOLE 40 MG INJ IV ONE (21:00)
[2017-05-17] MEDS: TICAGRELOR 90 MG TABLET PO SCH (21:00)
[2017-05-17] MEDS: ATORVASTATIN 80 MG TAB PO SCH (21:32)
[2017-05-17] MEDS: PANTOPRAZOLE IV 80 MG in SOD CHLORIDE 0.9% 100 ML IV SCH (22:05)
[2017-05-17 22:15] LABS: BASOPHILS % 0.1 % (0.0-2.0); EOSINOPHILS % 0.1 % (0.0-7.0); HEMATOCRIT 28.9 % (37.0-47.0); HEMOGLOBIN 9.7 g/dl (12.0-16.0); LYMPHOCYTES # 0.9 10^3/ul (0.8-2.9); LYMPHOCYTES % 8.8 % (15.0-51.0); MEAN CORPUSCULAR HEMOGLOBIN 32.1 pg (29.0-33.0); MEAN CORPUSCULAR HGB CONC 33.6 g/dl (32.0-37.0); MEAN CORPUSCULAR VOLUME 95.7 fl (82.0-101.0); MEAN PLATELET VOLUME 9.3 fl (7.4-10.4); MONOCYTE # 0.6 10^3/ul (0.3-0.9); MONOCYTES % 5.2 % (0.0-11.0); NEUTROPHILS % 85.4 % (39.0-77.0); PLATELET COUNT 166 10^3/UL (140-415); RED BLOOD COUNT 3.02 10^6/ul (4.20-5.40); RED CELL DISTRIBUTION WIDTH 12.3 % (11.5-14.5); WHITE BLOOD COUNT 10.7 10^3/ul (4.8-10.8)
[2017-05-17 22:29] LABS: INR 1.68; PROTIME 19.9 Sec (12.2-14.2); PT RATIO 1.6
[2017-05-17] MEDS ORDERED: SOD CHLORIDE 0.9% 500 ML IV ONE (22:30)
[2017-05-17 22:31] LABS: PARTIAL THROMBOPLASTIN TIME 53.6 Sec (25.0-35.0)
[2017-05-17 22:33] LABS: ALBUMIN 3.3 g/dl (3.3-4.9); ALBUMIN/GLOBULIN RATIO 1.13; BILIRUBIN,INDIRECT 0.7 mg/dl (0-1.1); BILIRUBIN,TOTAL 0.7 mg/dl (0.2-1.3); CALCIUM 7.9 mg/dl (8.4-10.2); CREATININE 0.62 mg/dl (0.44-1.00); POTASSIUM 3.2 mmol/L (3.5-5.1); TOTAL PROTEIN 6.2 g/dl (6.1-8.1)
[2017-05-17] MEDS ORDERED: POTASSIUM CHLORIDE 250 ML IVPB ONE (23:00)
[2017-05-18] VITALS (43 sets, daily range): BP systolic 68–120; BP diastolic 46–82; PULSE 50–97; RESP 9–24
[2017-05-18] MEDS: NITROGLYCERIN (SL) 0.4 MG TAB SL PRN (04:37)
[2017-05-18 05:17] LABS: BASOPHILS % 0.1 % (0.0-2.0); EOSINOPHILS % 0.1 % (0.0-7.0); HEMATOCRIT 27.2 % (37.0-47.0); LYMPHOCYTES # 1.6 10^3/ul (0.8-2.9); LYMPHOCYTES % 19.5 % (15.0-51.0); MEAN CORPUSCULAR HEMOGLOBIN 31.9 pg (29.0-33.0); MEAN CORPUSCULAR HGB CONC 33.1 g/dl (32.0-37.0); MEAN CORPUSCULAR VOLUME 96.5 fl (82.0-101.0); MEAN PLATELET VOLUME 9.1 fl (7.4-10.4); MONOCYTE # 0.7 10^3/ul (0.3-0.9); MONOCYTES % 8.4 % (0.0-11.0); NEUTROPHILS % 71.7 % (39.0-77.0); PLATELET COUNT 156 10^3/UL (140-415); RED BLOOD COUNT 2.82 10^6/ul (4.20-5.40); RED CELL DISTRIBUTION WIDTH 12.3 % (11.5-14.5); WHITE BLOOD COUNT 8.3 10^3/ul (4.8-10.8)
[2017-05-18 05:48] LABS: INR 1.1; PARTIAL THROMBOPLASTIN TIME 23.5 Sec (25.0-35.0); PROTIME 14.2 Sec (12.2-14.2); PT RATIO 1.1
[2017-05-18 05:52] LABS: ALBUMIN/GLOBULIN RATIO 1.11; BILIRUBIN,INDIRECT 0.7 mg/dl (0-1.1); BILIRUBIN,TOTAL 0.7 mg/dl (0.2-1.3); CALCIUM 8.1 mg/dl (8.4-10.2); CHOL/HDL RATIO 3.3 RATIO; CREATININE 0.65 mg/dl (0.44-1.00); MAGNESIUM 1.8 mg/dl (1.7-2.5); POTASSIUM 4.5 mmol/L (3.5-5.1); TOTAL PROTEIN 5.7 g/dl (6.1-8.1)
[2017-05-18 06:00] LABS: CK-MB 42.7 ng/ml (0.0-2.4)
[2017-05-18 06:18] LABS: TROPONIN-I 15.6 ng/ml (0.00-0.12)
[2017-05-18 06:19] LABS: THYROID STIMULATING HORMONE 2.17 MIU/L (0.465-4.680)
[2017-05-18] MEDS: SOD CHLORIDE 0.9% 1,000 ML IV SCH ×2 (07:01→17:19)
[2017-05-18] MEDS: PANTOPRAZOLE IV 80 MG in SOD CHLORIDE 0.9% 100 ML IV SCH ×2 (07:03→18:16)
--- NOTE | 2017-05-18 07:50 | CONS ---
Date/Time of Note Date/Time of Note DATE: 05/18/17 TIME: 07:45 Consult Date/Type/Reason Admit Date/Time May 16, 2017 at 03:14 Type of Consultation: CARDIOLOGY Subjective Discussed with staff rhythms he was reviewed. Discussed with patient's daughters. pt s/p complex PCI LAD & LCX yesterday. she had one episode of N/V with coffee ground emesis but it has stopped now and is on protonix drip. she had one episode of chest pain this am which improved with NTG NO groin pain or bleeding OBJECTIVE: General: no acute distress HEENT: NC/AT. pupils are equal. round. NECK: NO JVD. no stridor. CV: RRR. systolic murmur; no gallop or rubs. PULM: no wheezing or rhonchi. GI: SOFT, NT, ND, no rebound or guarding Extremity: trace B/L LE edema. no clubbing. neuro: awake and alert, OX3. Psych: calm and pleasant rectal: deferred : normal vascular: R femoral sheath in place. ECHO: 1. Normal left ventricular systolic function. Normal left ventricular cavity size. Mild concentric left ventricular hypertrophy. Ejection fraction is visually estimated at 60 %. Tissue Doppler/Mitral Doppler indices are consistent with impaired relaxation (Stage I diastolic dysfunction). ECG reviewed. 05/18/17: NSR. nonspecific ST abn. (significantly improved compared to 05/17/17) Objective Vital Signs Date Time Temp Pulse Resp B/P Pulse Ox O2 Delivery O2 Flow Rate FiO2 05/18/17 07:00 97 12 100/60 99 Room Air 05/18/17 04:00 99.2 05/16/17 10:00 2.0 Intake and Output 05/17/17 05/17/17 05/18/17 15:00 23:00 07:00 Intake Total 869 ml 1570 ml Output Total 375 ml 1000 ml Balance 494 ml 570 ml Results/Medications Result Diagram: 05/18/17 0500 05/18/17 0500 Results 24 hrs Laboratory Tests Test 05/17/17 14:43 05/17/17 21:55 05/18/17 05:00 Activated Partial Thromboplast Time 102.9 *H 53.6 H 23.5 L White Blood Count 10.7 # 8.3 # Red Blood Count 3.02 L 2.82 L Hemoglobin 9.7 L 9.0 L Hematocrit 28.9 L 27.2 L Mean Corpuscular Volume 95.7 96.5 Mean Corpuscular Hemoglobin 32.1 31.9 Mean Corpuscular Hemoglobin Concent 33.6 33.1 Red Cell Distribution Width 12.3 12.3 Platelet Count 166 156 Mean Platelet Volume 9.3 9.1 Neutrophils % 85.4 H 71.7 Lymphocytes % 8.8 L 19.5 Monocytes % 5.2 8.4 Eosinophils % 0.1 0.1 Basophils % 0.1 0.1 Nucleated Red Blood Cells % 0.0 0.0 Neutrophils # (Manual) 9.1 H 5.9 Lymphocytes # 0.9 1.6 Monocytes # 0.6 0.7 Eosinophils # 0.0 0.0 Basophils # 0.0 0.0 Nucleated Red Blood Cells # 0.0 0.0 Prothrombin Time 19.9 #H 14.2 # Prothrombin Time Ratio 1.6 1.1 INR International Normalized Ratio 1.68 1.10 Sodium Level 140 141 Potassium Level 3.2 L 4.5 Chloride Level 111 H 114 H Carbon Dioxide Level 21 22 Anion Gap 11 10 Blood Urea Nitrogen 10 10 Creatinine 0.62 0.65 Glucose Level 112 95 Calcium Level 7.9 L 8.1 L Total Bilirubin 0.7 0.7 Direct Bilirubin 0.00 0.00 Indirect Bilirubin 0.7 0.7 Aspartate Amino Transf (AST/SGOT) 24 53 H Alanine Aminotransferase (ALT/SGPT) 32 37 Alkaline Phosphatase 58 51 Creatine Kinase 138 572 #H Total Protein 6.2 # 5.7 L Albumin 3.3 3.0 L Globulin 2.90 2.70 Albumin/Globulin Ratio 1.13 1.11 Magnesium Level 1.8 Creatine Kinase Index 7.5 Creatinine Kinase MB (Mass) 42.70 H Troponin I 15.600 *H Triglycerides Level 111 Cholesterol Level 126 # LDL Cholesterol, Calculated 66 HDL Cholesterol 38 # Cholesterol/HDL Ratio 3.3 Thyroid Stimulating Hormone (TSH) 2.170 Free Thyroxine 1.20 Medications Current Medications Aspirin (Halfprin) 81 mg DAILY PO Last administered on 05/17/17 08:10; Admin Dose 81 MG; Start 05/16/17 at 09:00 Ranitidine HCl (Zantac) 150 mg BID PO Last administered on 05/17/17 21:24; Admin Dose 150 MG; Start 05/16/17 at 09:00 Nitroglycerin (Nitroglycerin (Sl Tab) 0.4 Mg) 1 tab Q5M PRN SL ANGINA Last administered on 05/18/17 04:37; Admin Dose 1 TAB; Start 05/16/17 at 07:00 Morphine Sulfate (morphine) 2 mg Q4H PRN IV PAIN LEVEL 7-10 Last administered on 05/17/17 21:21; Admin Dose 2 MG; Start 05/16/17 at 07:00 Acetaminophen (Tylenol Tab) 650 mg Q6H PRN PO PAIN AND OR ELEVATED TEMP; Start 05/16/17 at 07:00 Metoprolol Tartrate (Lopressor) 25 mg BID PO Last administered on 05/17/17 22: 00; Admin Dose 25 MG; Start 05/16/17 at 11:00 Atorvastatin Calcium (Lipitor) 80 mg HS PO Last administered on 05/17/17 21:32 ; Admin Dose 80 MG; Start 05/17/17 at 21:00 Ticagrelor 90 mg 90 mg BID PO ; Start 05/17/17 at 21:00 Sodium Chloride 1,000 ml @ 100 mls/hr Q10H IV Last administered on 05/18/17 07 :01; Admin Dose 100 MLS/HR; Start 05/17/17 at 20:16 Pantoprazole/ Sodium Chloride (Protonix Iv/NS) 100 ml @ 10 mls/hr Q10H IV Last administered on 05/18/17 07:03; Admin Dose 10 MLS/HR; Start 05/17/17 at 21: 00 Assessment/Plan Chief Complaint/Hosp Course Assessment: 1. NSTEMI: s/p complex PCI LAD/ LCX 2. abnormal ECG due to above 3. HTN 4. Dyslipidemia 5. obesity 6. hypo K: corrected now 7. coffee ground emesis: stable now 8. anemia. RECOMMENDATIONS: Continue with aspirin and brilinta. Statins. brilinta. Protonix IV. consider GI consultations please. replace electrolytes DC A line CONT ICU care today. will add NTG more than 38 min of critical care time was spent in management and treatment of this critically ill pt, excluding any procedures. THANK YOU NATALY GAN MD [facility] Problems: NATALY GAN MD May 18, 2017 07:50
[2017-05-18] MEDS ORDERED: ATROPINE 1 MG/10 ML SYRINGE ONE (08:32)
--- NOTE | 2017-05-18 08:37 | PN ---
Date/Time of Note Date/Time of Note DATE: 05/18/17 TIME: 08:37 Assessment/Plan VTE Prophylaxis VTE Prophylaxis Intervention: other Lines/Catheters IV Catheter Type (from Nrs): Peripheral IV Urinary Cath still in place: No Assessment/Plan Assessment/Plan 1. NSTEMI - s/p complex PCI LAD/ LCX - on Brilinta and aspirin - Cardiology on board and recommendations appreciated. right femoral sheath in place with no drainage - EKG this am showed normal sinus rhythm 2. ?Upper GI bleed - episode of coffee ground emesis on Protonix drip - GI consult placed for further evaluation especially since on dual antiplatelet - will monitor for additional episodes but currently hemodynamically stable - Hgb 9.0 this am, 11.4 at time of admission 3. HTN - BP currently stable 4. Dyslipidemia - on statin 5. obesity - counseled patient about proper diet and increasing physical activity 6. anemia. I spent 30 minutes of critical care time with this patient answering all family and her questions and concerns. Will continue to monitor patient in ICU today Subjective 24 Hr Interval Summary Free Text/Dictation Patient seen and examined with daughter at bedside. Patient doing well and states not currently experiencing any pain, nausea, vomiting, dizziness, shortness of breath, or abdominal issues. Admits to one episode of emesis after procedure but denies any further episodes. Exam/Review of Systems Vital Signs Vitals Vital Signs Date Time Temp Pulse Resp B/P Pulse Ox O2 Delivery O2 Flow Rate FiO2 05/18/17 07:00 97 12 100/60 99 Room Air 05/18/17 04:00 99.2 05/16/17 10:00 2.0 Intake and Output 05/17/17 05/17/17 05/18/17 15:00 23:00 07:00 Intake Total 869 ml 1570 ml Output Total 375 ml 1000 ml Balance 494 ml 570 ml Exam General: NAD, resting comfortably and easily arousable, alert HEENT: NC/AT. pupils are equal. round. Neck: NO JVD. no stridor. CV: RRR. no gallop or rubs. Lungs: CTA b/l. no wheezing or rhonchi. GI: Soft, nontender, nondistended, no rebound or guarding Extremity: trace b/l LE edema. no clubbing. R femoral sheath in place with no drainage or erythema. Results Result Diagram: 05/18/17 0500 05/18/17 0500 Results 24 hrs Laboratory Tests Test 05/17/17 14:43 05/17/17 21:55 05/18/17 05:00 Activated Partial Thromboplast Time 102.9 *H 53.6 H 23.5 L White Blood Count 10.7 # 8.3 # Red Blood Count 3.02 L 2.82 L Hemoglobin 9.7 L 9.0 L Hematocrit 28.9 L 27.2 L Mean Corpuscular Volume 95.7 96.5 Mean Corpuscular Hemoglobin 32.1 31.9 Mean Corpuscular Hemoglobin Concent 33.6 33.1 Red Cell Distribution Width 12.3 12.3 Platelet Count 166 156 Mean Platelet Volume 9.3 9.1 Neutrophils % 85.4 H 71.7 Lymphocytes % 8.8 L 19.5 Monocytes % 5.2 8.4 Eosinophils % 0.1 0.1 Basophils % 0.1 0.1 Nucleated Red Blood Cells % 0.0 0.0 Neutrophils # (Manual) 9.1 H 5.9 Lymphocytes # 0.9 1.6 Monocytes # 0.6 0.7 Eosinophils # 0.0 0.0 Basophils # 0.0 0.0 Nucleated Red Blood Cells # 0.0 0.0 Prothrombin Time 19.9 #H 14.2 # Prothrombin Time Ratio 1.6 1.1 INR International Normalized Ratio 1.68 1.10 Sodium Level 140 141 Potassium Level 3.2 L 4.5 Chloride Level 111 H 114 H Carbon Dioxide Level 21 22 Anion Gap 11 10 Blood Urea Nitrogen 10 10 Creatinine 0.62 0.65 Glucose Level 112 95 Calcium Level 7.9 L 8.1 L Total Bilirubin 0.7 0.7 Direct Bilirubin 0.00 0.00 Indirect Bilirubin 0.7 0.7 Aspartate Amino Transf (AST/SGOT) 24 53 H Alanine Aminotransferase (ALT/SGPT) 32 37 Alkaline Phosphatase 58 51 Creatine Kinase 138 572 #H Total Protein 6.2 # 5.7 L Albumin 3.3 3.0 L Globulin 2.90 2.70 Albumin/Globulin Ratio 1.13 1.11 Magnesium Level 1.8 Creatine Kinase Index 7.5 Creatinine Kinase MB (Mass) 42.70 H Troponin I 15.600 *H Triglycerides Level 111 Cholesterol Level 126 # LDL Cholesterol, Calculated 66 HDL Cholesterol 38 # Cholesterol/HDL Ratio 3.3 Thyroid Stimulating Hormone (TSH) 2.170 Free Thyroxine 1.20 Medications Medications Current Medications Aspirin (Halfprin) 81 mg DAILY PO Last administered on 05/17/17 08:10; Admin Dose 81 MG; Start 05/16/17 at 09:00 Ranitidine HCl (Zantac) 150 mg BID PO Last administered on 05/17/17 21:24; Admin Dose 150 MG; Start 05/16/17 at 09:00 Nitroglycerin (Nitroglycerin (Sl Tab) 0.4 Mg) 1 tab Q5M PRN SL ANGINA Last administered on 05/18/17 04:37; Admin Dose 1 TAB; Start 05/16/17 at 07:00 Morphine Sulfate (morphine) 2 mg Q4H PRN IV PAIN LEVEL 7-10 Last administered on 05/17/17 21:21; Admin Dose 2 MG; Start 05/16/17 at 07:00 Acetaminophen (Tylenol Tab) 650 mg Q6H PRN PO PAIN AND OR ELEVATED TEMP; Start 05/16/17 at 07:00 Metoprolol Tartrate (Lopressor) 25 mg BID PO Last administered on 05/17/17 22: 00; Admin Dose 25 MG; Start 05/16/17 at 11:00 Atorvastatin Calcium (Lipitor) 80 mg HS PO Last administered on 05/17/17 21:32 ; Admin Dose 80 MG; Start 05/17/17 at 21:00 Ticagrelor 90 mg 90 mg BID PO ; Start 05/17/17 at 21:00 Sodium Chloride 1,000 ml @ 100 mls/hr Q10H IV Last administered on 05/18/17 07 :01; Admin Dose 100 MLS/HR; Start 05/17/17 at 20:16 Pantoprazole/ Sodium Chloride (Protonix Iv/NS) 100 ml @ 10 mls/hr Q10H IV Last administered on 05/18/17 07:03; Admin Dose 10 MLS/HR; Start 05/17/17 at 21: 00 Isosorbide Dinitrate (Isordil) 20 mg TID PO ; Start 05/18/17 at 09:00 CORETTA SUTTON MD May 18, 2017 08:37
[2017-05-18] MEDS: METOPROLOL 25 MG TAB PO SCH ×2 (09:00→21:00)
[2017-05-18] MEDS: ISOSORBIDE DINITRATE 20 MG TAB PO SCH ×3 (09:00→21:00)
[2017-05-18] MEDS: RANITIDINE 150 MG TAB PO SCH ×2 (09:36→21:13)
[2017-05-18] MEDS: ASPIRIN (EC) 81 MG TAB PO SCH (09:36)
[2017-05-18] MEDS: TICAGRELOR 90 MG TABLET PO SCH ×2 (09:37→21:15)
--- NOTE | 2017-05-18 19:17 | RADRPT ---
Vent Rate: 80 bpm RR Interval: 0 msec TX Interval: 138 msec QRS Duration: 80 msec QT Interval: 386 msec QTC Interval: 445 msec P-R-T [place]: 36 - 6 - -5 degrees Normal sinus rhythm Marked ST abnormality, possible anteroseptal subendocardial injury Abnormal ECG Electronically Signed By: Stan Champion [id number]
--- NOTE | 2017-05-18 19:18 | RADRPT ---
Vent Rate: 85 bpm RR Interval: 0 msec MA Interval: 144 msec QRS Duration: 66 msec QT Interval: 360 msec QTC Interval: 428 msec P-R-T [place]: 63 - 53 - 65 degrees Normal sinus rhythm Normal ECG Electronically Signed By: Stan Champion [id number]
[2017-05-18] MEDS: ATORVASTATIN 80 MG TAB PO SCH (21:13)
[2017-05-19] VITALS (33 sets, daily range): BP systolic 74–111; BP diastolic 42–64; PULSE 79–95; RESP 9–19
[2017-05-19] MEDS: SOD CHLORIDE 0.9% 1,000 ML IV SCH ×3 (02:43→22:51)
[2017-05-19] MEDS: PANTOPRAZOLE IV 80 MG in SOD CHLORIDE 0.9% 100 ML IV SCH ×3 (04:34→23:00)
[2017-05-19 05:44] LABS: BASOPHILS % 0.1 % (0.0-2.0); EOSINOPHILS # 0.1 10^3/ul (0.0-0.5); EOSINOPHILS % 1.1 % (0.0-7.0); HEMOGLOBIN 8.9 g/dl (12.0-16.0); LYMPHOCYTES # 1.7 10^3/ul (0.8-2.9); LYMPHOCYTES % 23.5 % (15.0-51.0); MEAN CORPUSCULAR HEMOGLOBIN 30.8 pg (29.0-33.0); MEAN CORPUSCULAR HGB CONC 31.8 g/dl (32.0-37.0); MEAN CORPUSCULAR VOLUME 96.9 fl (82.0-101.0); MEAN PLATELET VOLUME 9.6 fl (7.4-10.4); MONOCYTE # 0.6 10^3/ul (0.3-0.9); MONOCYTES % 8.5 % (0.0-11.0); NEUTROPHILS % 66.4 % (39.0-77.0); PLATELET COUNT 145 10^3/UL (140-415); RED BLOOD COUNT 2.89 10^6/ul (4.20-5.40); RED CELL DISTRIBUTION WIDTH 12.5 % (11.5-14.5); WHITE BLOOD COUNT 7.3 10^3/ul (4.8-10.8)
[2017-05-19 06:07] LABS: ALBUMIN 3.2 g/dl (3.3-4.9); CALCIUM 8.6 mg/dl (8.4-10.2); CREATININE 0.7 mg/dl (0.44-1.00); MAGNESIUM 1.9 mg/dl (1.7-2.5); PHOSPHORUS 3.8 mg/dl (2.5-4.9); POTASSIUM 3.6 mmol/L (3.5-5.1)
--- NOTE | 2017-05-19 07:11 | CONS ---
Date/Time of Note Date/Time of Note DATE: 05/19/17 TIME: 07:07 Consult Date/Type/Reason Admit Date/Time May 16, 2017 at 03:14 Type of Consultation: CARDIOLOGY Subjective cardiology follow up/ critical care note: Discussed with staff rhythms he was reviewed. Discussed with patient's family. pt remains in NSR no more chest pain or pressure yesterday. she has mild groin pain no more N.V. COFFE GROUND EMESIS. NO BM. NO bleeding OBJECTIVE: General: no acute distress HEENT: NC/AT. pupils are equal. round. NECK: NO JVD. no stridor. CV: RRR. systolic murmur; no gallop or rubs. PULM: no wheezing or rhonchi. GI: SOFT, NT, ND, no rebound or guarding Extremity: trace B/L LE edema. no clubbing. neuro: awake and alert, OX3. Psych: calm and pleasant rectal: deferred : normal vascular: R femoral sheath removed wiht no hematoma or bleeding or bruit. ECHO: 1. Normal left ventricular systolic function. Normal left ventricular cavity size. Mild concentric left ventricular hypertrophy. Ejection fraction is visually estimated at 60 %. Tissue Doppler/Mitral Doppler indices are consistent with impaired relaxation (Stage I diastolic dysfunction). ECG reviewed. 05/18/17: NSR. nonspecific ST abn. (significantly improved compared to 05/17/17) Objective Vital Signs Date Time Temp Pulse Resp B/P Pulse Ox O2 Delivery O2 Flow Rate FiO2 05/19/17 06:00 87 18 111/63 98 Room Air 05/19/17 05:34 21 05/19/17 04:00 99.2 05/16/17 10:00 2.0 Intake and Output 05/18/17 05/18/17 05/19/17 15:00 23:00 07:00 Intake Total 200 ml 590 ml 770 ml Output Total 1450 ml 450 ml 725 ml Balance -1250 ml 140 ml 45 ml Results/Medications Result Diagram: 05/19/17 0515 05/19/17 0515 Results 24 hrs Laboratory Tests Test 05/19/17 05:15 White Blood Count 7.3 Red Blood Count 2.89 L Hemoglobin 8.9 L Hematocrit 28.0 L Mean Corpuscular Volume 96.9 Mean Corpuscular Hemoglobin 30.8 Mean Corpuscular Hemoglobin Concent 31.8 L Red Cell Distribution Width 12.5 Platelet Count 145 Mean Platelet Volume 9.6 Neutrophils % 66.4 Lymphocytes % 23.5 Monocytes % 8.5 Eosinophils % 1.1 Basophils % 0.1 Nucleated Red Blood Cells % 0.0 Neutrophils # (Manual) 4.8 Lymphocytes # 1.7 Monocytes # 0.6 Eosinophils # 0.1 Basophils # 0.0 Nucleated Red Blood Cells # 0.0 Sodium Level 140 Potassium Level 3.6 Chloride Level 110 Carbon Dioxide Level 23 Anion Gap 11 Blood Urea Nitrogen 9 Creatinine 0.70 Glucose Level 82 Calcium Level 8.6 Phosphorus Level 3.8 Magnesium Level 1.9 Albumin 3.2 L Medications Current Medications Aspirin (Halfprin) 81 mg DAILY PO Last administered on 05/18/17 09:36; Admin Dose 81 MG; Start 05/16/17 at 09:00 Ranitidine HCl (Zantac) 150 mg BID PO Last administered on 05/18/17 21:13; Admin Dose 150 MG; Start 05/16/17 at 09:00 Nitroglycerin (Nitroglycerin (Sl Tab) 0.4 Mg) 1 tab Q5M PRN SL ANGINA Last administered on 05/18/17 04:37; Admin Dose 1 TAB; Start 05/16/17 at 07:00 Morphine Sulfate (morphine) 2 mg Q4H PRN IV PAIN LEVEL 7-10 Last administered on 05/17/17 21:21; Admin Dose 2 MG; Start 05/16/17 at 07:00 Acetaminophen (Tylenol Tab) 650 mg Q6H PRN PO PAIN AND OR ELEVATED TEMP Last administered on 05/18/17 09:01; Admin Dose 650 MG; Start 05/16/17 at 07:00 Metoprolol Tartrate (Lopressor) 25 mg BID PO Last administered on 05/17/17 22: 00; Admin Dose 25 MG; Start 05/16/17 at 11:00 Atorvastatin Calcium (Lipitor) 80 mg HS PO Last administered on 05/18/17 21:13 ; Admin Dose 80 MG; Start 05/17/17 at 21:00 Ticagrelor 90 mg 90 mg BID PO Last administered on 05/18/17 21:15; Admin Dose 90 MG; Start 05/17/17 at 21:00 Sodium Chloride 1,000 ml @ 100 mls/hr Q10H IV Last administered on 05/19/17 02 :43; Admin Dose 100 MLS/HR; Start 05/17/17 at 20:16 Pantoprazole/ Sodium Chloride (Protonix Iv/NS) 100 ml @ 10 mls/hr Q10H IV Last administered on 05/19/17 04:34; Admin Dose 10 MLS/HR; Start 05/17/17 at 21: 00 Isosorbide Dinitrate (Isordil) 20 mg TID PO Last administered on 05/18/17 14:29 ; Admin Dose 20 MG; Start 05/18/17 at 09:00 Assessment/Plan Chief Complaint/Hosp Course Assessment: 1. NSTEMI: s/p complex PCI LAD/ LCX 2. abnormal ECG due to above 3. HTN 4. Dyslipidemia 5. obesity 6. hypo K: corrected now 7. coffee ground emesis: resolved now 8. anemia. 9. CV preop evaluation: d/w anesthesiologist. pt is currently stable from cardiac stand point with moderate risk of CV events. however, the longer it can be delayed the lower the expected risk would be. RECOMMENDATIONS: Continue with aspirin and brilinta. Statins. brilinta. on Protonix IV. f/u GI consultations please. replace electrolyte NTG as tolerated. more than 36 min of critical care time was spent in management and treatment of this critically ill pt, excluding any procedures. THANK YOU NATALY GAN MD [facility] Problems: NATALY GAN MD May 19, 2017 07:11
[2017-05-19] MEDS ORDERED: POTASSIUM CHLORIDE (SR) 20 MEQ TAB PO STA (07:12)
[2017-05-19] MEDS ORDERED: MAGNESIUM SULFATE 2 GM/50 ML 50 ML IVPB ONE (07:30)
[2017-05-19] MEDS: ISOSORBIDE DINITRATE 20 MG TAB PO SCH ×3 (07:58→21:00)
[2017-05-19] MEDS: METOPROLOL 25 MG TAB PO SCH ×2 (07:58→21:47)
[2017-05-19 08:33] LABS: CK-MB 16.7 ng/ml (0.0-2.4)
[2017-05-19 08:34] LABS: TROPONIN-I 5.53 ng/ml (0.00-0.12)
--- NOTE | 2017-05-19 08:37 | PN ---
Date/Time of Note Date/Time of Note DATE: 05/19/17 TIME: 08:31 Assessment/Plan VTE Prophylaxis VTE Prophylaxis Intervention: other Lines/Catheters IV Catheter Type (from Nrs): Peripheral IV Urinary Cath still in place: No Assessment/Plan Assessment/Plan 1. NSTEMI - s/p complex PCI LAD/ LCX - on Brilinta and aspirin - Cardiology on board and recommendations appreciated. Cleared for EGD but still would like to delay the procedure as long as possible. 2. ?Upper GI bleed - one time episode of coffee ground emesis on Protonix drip - GI on board and recommendations appreciated. plan is for patient to undergo EGD - hemodynamically stable and H/H stable 3. HTN - BP currently stable 4. Dyslipidemia - on statin 5. obesity - counseled patient about proper diet and increasing physical activity 6. hypokalemia - 3.6, replaced - will continue monitoring >30 minutes was spent in management and treatment of this critically ill pt Subjective 24 Hr Interval Summary Free Text/Dictation Patient seen and examined. She is doing well and states no longer experiencing pain in chest, shortness of breath, nausea, vomiting, dizziness, or abdominal pain. She is resting comfortably and no acute overnight events. Exam/Review of Systems Vital Signs Vitals Vital Signs Date Time Temp Pulse Resp B/P Pulse Ox O2 Delivery O2 Flow Rate FiO2 05/19/17 07:30 99.2 87 15 108/61 99 Room Air 05/19/17 05:34 21 05/16/17 10:00 2.0 Intake and Output 05/18/17 05/18/17 05/19/17 15:00 23:00 07:00 Intake Total 200 ml 590 ml 880 ml Output Total 1450 ml 450 ml 725 ml Balance -1250 ml 140 ml 155 ml Exam General: NAD, resting comfortably and easily arousable, alert HEENT: NC/AT. pupils are equal. round. Neck: NO JVD. no stridor. CV: RRR. no gallop or rubs. Lungs: CTA b/l. no wheezing or rhonchi. GI: Soft, nontender, nondistended, no rebound or guarding Extremity: no edema, no clubbing.. Results Result Diagram: 05/19/1715 05/19/1715 Results 24 hrs Laboratory Tests Test 05/19/17 05:05 05/19/17 05:15 Creatine Kinase 405 #H Creatine Kinase Index Pending Creatinine Kinase MB (Mass) Pending Troponin I Pending White Blood Count 7.3 Red Blood Count 2.89 L Hemoglobin 8.9 L Hematocrit 28.0 L Mean Corpuscular Volume 96.9 Mean Corpuscular Hemoglobin 30.8 Mean Corpuscular Hemoglobin Concent 31.8 L Red Cell Distribution Width 12.5 Platelet Count 145 Mean Platelet Volume 9.6 Neutrophils % 66.4 Lymphocytes % 23.5 Monocytes % 8.5 Eosinophils % 1.1 Basophils % 0.1 Nucleated Red Blood Cells % 0.0 Neutrophils # (Manual) 4.8 Lymphocytes # 1.7 Monocytes # 0.6 Eosinophils # 0.1 Basophils # 0.0 Nucleated Red Blood Cells # 0.0 Sodium Level 140 Potassium Level 3.6 Chloride Level 110 Carbon Dioxide Level 23 Anion Gap 11 Blood Urea Nitrogen 9 Creatinine 0.70 Glucose Level 82 Calcium Level 8.6 Phosphorus Level 3.8 Magnesium Level 1.9 Albumin 3.2 L Medications Medications Current Medications Aspirin (Halfprin) 81 mg DAILY PO Last administered on 05/18/17 09:36; Admin Dose 81 MG; Start 05/16/17 at 09:00 Ranitidine HCl (Zantac) 150 mg BID PO Last administered on 05/18/17 21:13; Admin Dose 150 MG; Start 05/16/17 at 09:00 Nitroglycerin (Nitroglycerin (Sl Tab) 0.4 Mg) 1 tab Q5M PRN SL ANGINA Last administered on 05/18/17 04:37; Admin Dose 1 TAB; Start 05/16/17 at 07:00 Morphine Sulfate (morphine) 2 mg Q4H PRN IV PAIN LEVEL 7-10 Last administered on 05/17/17 21:21; Admin Dose 2 MG; Start 05/16/17 at 07:00 Acetaminophen (Tylenol Tab) 650 mg Q6H PRN PO PAIN AND OR ELEVATED TEMP Last administered on 05/18/17 09:01; Admin Dose 650 MG; Start 05/16/17 at 07:00 Metoprolol Tartrate (Lopressor) 25 mg BID PO Last administered on 05/19/17 07: 58; Admin Dose 25 MG; Start 05/16/17 at 11:00 Atorvastatin Calcium (Lipitor) 80 mg HS PO Last administered on 05/18/17 21:13 ; Admin Dose 80 MG; Start 05/17/17 at 21:00 Ticagrelor 90 mg 90 mg BID PO Last administered on 05/18/17 21:15; Admin Dose 90 MG; Start 05/17/17 at 21:00 Sodium Chloride 1,000 ml @ 100 mls/hr Q10H IV Last administered on 05/19/17 02 :43; Admin Dose 100 MLS/HR; Start 05/17/17 at 20:16 Pantoprazole/ Sodium Chloride (Protonix Iv/NS) 100 ml @ 10 mls/hr Q10H IV Last administered on 05/19/17 04:34; Admin Dose 10 MLS/HR; Start 05/17/17 at 21: 00 Isosorbide Dinitrate 20 mg 20 mg TID PO Last administered on 05/19/17 07:58; Admin Dose 20 MG; Start 05/18/17 at 09:00 Magnesium Sulfate (Magnesium Sulfate 2 Gm/50 ml) 50 ml @ 25 mls/hr ONCE ONCE IVPB Last administered on 05/19/17 07:59; Admin Dose 25 MLS/HR; Start 05/19/17 at 07:30; Stop 05/19/17 at 09:29 Docusate Sodium (Colace) 250 mg BID PO ; Start 05/19/17 at 09:00 CORETTA SUTTON MD May 19, 2017 08:37
[2017-05-19] MEDS: ASPIRIN (EC) 81 MG TAB PO SCH (11:28)
[2017-05-19] MEDS: RANITIDINE 150 MG TAB PO SCH ×2 (16:02→21:47)
[2017-05-19] MEDS: DOCUSATE SODIUM 250 MG CAP PO SCH ×2 (16:02→21:46)
--- NOTE | 2017-05-19 16:05 | CONS ---
Date/Time of Note Date/Time of Note DATE: 05/19/17 TIME: 15:52 Assessment/Plan Assessment/Plan Additional Assessment/Plan Assessment * NSTEMI * S/P cardiac catheterization * Coffee ground emesis Plan * continue present management * EGD possibly tomorrow * Case discussed with Dr Houston * further orders will depend on clinical course Consultation Date/Type/Reason Admit Date/Time May 16, 2017 at 03:14 Date of Consultation: May 19, 2017 Type of Consultation: Gastroenterology Reason for Consultation coffee ground emesis Referring Provider: CORETTA SUTTON MD Hx of Present Illness 56 year old female with past medical history of GERD,hypertension,dyslipidemia presented in the emergency room of NSTEMI.Patient underwent heart catheterization.She had an episode of coffee ground emesis hence referral to gastroenterology.No episode of hematemesis nor coffee ground emesis.Patient is tentatively scheduled for EGD tomorrow per Dr Houston.Latest Troponin is 5 Constitutional: improved, no complaints Eyes: no complaints ENT: no complaints Respiratory: no complaints Cardiovascular: chest pain Gastrointestinal: no complaints Genitourinary: no complaints Musculoskeletal: no complaints Skin: no complaints Neurologic: no complaints Endocrine: no complaints Lymphatic: no complaints Psychological: nl mood/affect, no complaints Immunologic: no complaints Past Medical History Medical History: high cholesterol, hypertension Social History Alcohol Use: none Smoking Status: Never smoker Drug Use: none Exam/Review of Systems Vital Signs Vitals Vital Signs Date Time Temp Pulse Resp B/P Pulse Ox O2 Delivery O2 Flow Rate FiO2 05/19/17 14:30 85 13 101/54 99 05/19/17 14:00 Room Air 05/19/17 12:00 98.9 05/19/17 05:34 21 05/16/17 10:00 2.0 Intake and Output 05/18/17 05/18/17 05/19/17 15:00 23:00 07:00 Intake Total 200 ml 590 ml 880 ml Output Total 1450 ml 450 ml 725 ml Balance -1250 ml 140 ml 155 ml Exam Constitutional: alert, oriented, well developed Psych: nl mood/affect, no complaints Head: atraumatic, normocephalic Eyes: EOMI, PERRL, nl conjunctiva, nl lids, nl sclera ENMT: nl external ears & nose, nl lips & teeth, nl nasal mucosa & septum Neck: non-tender, supple Respiratory: clear to auscultation, normal air movement Cardiovascular: nl pulses, regular rate and rhythm Gastrointestinal: nl liver, spleen, non-tender, soft Musculoskeletal: nl extremities to inspection, nl gait and stance Extremities: normal pulses Neurological: ME[employer]ICAL [employer]ER II-XII intact, nl mental status, nl speech, nl strength Skin: nl turgor, No rash or lesions Lymph: nl lymph nodes Results Result Diagram: 05/19/1715 05/19/1715 Results 24 hrs Laboratory Tests Test 05/19/17 05:05 05/19/17 05:15 Creatine Kinase 405 #H Creatine Kinase Index 4.1 Creatinine Kinase MB (Mass) 16.70 H Troponin I 5.530 *H White Blood Count 7.3 Red Blood Count 2.89 L Hemoglobin 8.9 L Hematocrit 28.0 L Mean Corpuscular Volume 96.9 Mean Corpuscular Hemoglobin 30.8 Mean Corpuscular Hemoglobin Concent 31.8 L Red Cell Distribution Width 12.5 Platelet Count 145 Mean Platelet Volume 9.6 Neutrophils % 66.4 Lymphocytes % 23.5 Monocytes % 8.5 Eosinophils % 1.1 Basophils % 0.1 Nucleated Red Blood Cells % 0.0 Neutrophils # (Manual) 4.8 Lymphocytes # 1.7 Monocytes # 0.6 Eosinophils # 0.1 Basophils # 0.0 Nucleated Red Blood Cells # 0.0 Sodium Level 140 Potassium Level 3.6 Chloride Level 110 Carbon Dioxide Level 23 Anion Gap 11 Blood Urea Nitrogen 9 Creatinine 0.70 Glucose Level 82 Calcium Level 8.6 Phosphorus Level 3.8 Magnesium Level 1.9 Albumin 3.2 L Medications Medications Current Medications Aspirin (Halfprin) 81 mg DAILY PO Last administered on 05/19/17 11:28; Admin Dose 81 MG; Start 05/16/17 at 09:00 Ranitidine HCl (Zantac) 150 mg BID PO Last administered on 05/18/17 21:13; Admin Dose 150 MG; Start 05/16/17 at 09:00 Nitroglycerin (Nitroglycerin (Sl Tab) 0.4 Mg) 1 tab Q5M PRN SL ANGINA Last administered on 05/18/17 04:37; Admin Dose 1 TAB; Start 05/16/17 at 07:00 Morphine Sulfate (morphine) 2 mg Q4H PRN IV PAIN LEVEL 7-10 Last administered on 05/17/17 21:21; Admin Dose 2 MG; Start 05/16/17 at 07:00 Acetaminophen (Tylenol Tab) 650 mg Q6H PRN PO PAIN AND OR ELEVATED TEMP Last administered on 05/18/17 09:01; Admin Dose 650 MG; Start 05/16/17 at 07:00 Metoprolol Tartrate (Lopressor) 25 mg BID PO Last administered on 05/19/17 07: 58; Admin Dose 25 MG; Start 05/16/17 at 11:00 Atorvastatin Calcium (Lipitor) 80 mg HS PO Last administered on 05/18/17 21:13 ; Admin Dose 80 MG; Start 05/17/17 at 21:00 Ticagrelor 90 mg 90 mg BID PO Last administered on 05/18/17 21:15; Admin Dose 90 MG; Start 05/17/17 at 21:00 Sodium Chloride 1,000 ml @ 100 mls/hr Q10H IV Last administered on 05/19/17 15 :47; Admin Dose 100 MLS/HR; Start 05/17/17 at 20:16 Pantoprazole/ Sodium Chloride (Protonix Iv/NS) 100 ml @ 10 mls/hr Q10H IV Last administered on 05/19/17 15:45; Admin Dose 10 MLS/HR; Start 05/17/17 at 21: 00 Isosorbide Dinitrate (Isordil) 20 mg TID PO Last administered on 05/19/17 07:58 ; Admin Dose 20 MG; Start 05/18/17 at 09:00 Docusate Sodium (Colace) 250 mg BID PO ; Start 05/19/17 at 09:00 TERESA ARANA NP May 19, 2017 16:04
[2017-05-19] MEDS: TICAGRELOR 90 MG TABLET PO SCH ×2 (16:07→22:50)
[2017-05-19] MEDS: ONDANSETRON 4 MG INJ IV PRN (17:20)
[2017-05-19] MEDS: morphine 2 MG INJ IV PRN (19:21)
[2017-05-19] MEDS: ATORVASTATIN 80 MG TAB PO SCH (21:46)
[2017-05-20] VITALS (26 sets, daily range): BP systolic 80–136; BP diastolic 44–65; PULSE 73–90; RESP 13–21
[2017-05-20 06:39] LABS: BASOPHILS % 0.1 % (0.0-2.0); EOSINOPHILS # 0.1 10^3/ul (0.0-0.5); EOSINOPHILS % 1.3 % (0.0-7.0); HEMATOCRIT 25.5 % (37.0-47.0); HEMOGLOBIN 8.4 g/dl (12.0-16.0); LYMPHOCYTES # 1.1 10^3/ul (0.8-2.9); LYMPHOCYTES % 15.6 % (15.0-51.0); MEAN CORPUSCULAR HEMOGLOBIN 32.3 pg (29.0-33.0); MEAN CORPUSCULAR HGB CONC 32.9 g/dl (32.0-37.0); MEAN CORPUSCULAR VOLUME 98.1 fl (82.0-101.0); MEAN PLATELET VOLUME 9.7 fl (7.4-10.4); MONOCYTE # 0.6 10^3/ul (0.3-0.9); MONOCYTES % 8.6 % (0.0-11.0); NEUTROPHILS % 73.7 % (39.0-77.0); PLATELET COUNT 126 10^3/UL (140-415); RED CELL DISTRIBUTION WIDTH 12.5 % (11.5-14.5); WHITE BLOOD COUNT 7.1 10^3/ul (4.8-10.8)
[2017-05-20 06:46] LABS: ALBUMIN 3.1 g/dl (3.3-4.9); ALBUMIN/GLOBULIN RATIO 1.14; BILIRUBIN,INDIRECT 1.3 mg/dl (0-1.1); BILIRUBIN,TOTAL 1.3 mg/dl (0.2-1.3); CALCIUM 8.3 mg/dl (8.4-10.2); CREATININE 0.77 mg/dl (0.44-1.00); MAGNESIUM 2.1 mg/dl (1.7-2.5); TOTAL PROTEIN 5.8 g/dl (6.1-8.1)
[2017-05-20] MEDS: SOD CHLORIDE 0.9% 1,000 ML IV SCH (07:00)
[2017-05-20] MEDS: PANTOPRAZOLE IV 80 MG in SOD CHLORIDE 0.9% 100 ML IV SCH ×2 (07:01→14:45)
[2017-05-20 07:20] LABS: CK-MB 5.12 ng/ml (0.0-2.4)
[2017-05-20 07:28] LABS: TROPONIN-I 2.77 ng/ml (0.00-0.12)
[2017-05-20] MEDS ORDERED: DEXTROSE 50% 50 ML SYRINGE IV ONE (07:30)
[2017-05-20] MEDS ORDERED: DEXTROSE 50% 50 ML SYRINGE ONE (07:32)
--- NOTE | 2017-05-20 08:47 | PN ---
Date/Time of Note Date/Time of Note DATE: 05/20/17 TIME: 08:41 Assessment/Plan VTE Prophylaxis VTE Prophylaxis Intervention: contraindicated VTE Contraindication Reason: bleeding Lines/Catheters IV Catheter Type (from Nrsg): Peripheral IV Urinary Cath still in place: No Assessment/Plan Assessment/Plan 1. ?Upper GI bleed - one time episode of coffee ground emesis on Protonix drip - GI on board and recommendations appreciated. Plan for EGD possibly today - hemodynamically stable and H/H stable 2. Hypoglycemia - Patient found with low glucose this am and given dextrose - While NPO will change fluid to D5 NSS 3. NSTEMI - s/p complex PCI LAD/ LCX - on Brilinta and aspirin - Cardiology on board and recommendations appreciated. Cleared for EGD but still would like to delay the procedure as long as possible. 3. HTN - BP currently stable 4. Dyslipidemia - on statin 5. obesity - counseled patient about proper diet and increasing physical activity 6. hypokalemia - improved, 4.0 today - will continue monitoring >30 minutes was spent in management and treatment of this critically ill pt Subjective 24 Hr Interval Summary Free Text/Dictation Patient seen and examined. Resting comfortably this am. C/o being tired with difficulty sleeping in the hospital. Patient also complaining of chest pressure in the epigastric area that lasts for seconds then resolves. Denies any associated dizziness, nausea, vomiting, headache, shortness of breath or palpitations. She had an episode of emesis yesterday but states it was white with no blood. She also was found to have a glucose of <60 this am since currently NPO. Exam/Review of Systems Vital Signs Vitals Vital Signs Date Time Temp Pulse Resp B/P Pulse Ox O2 Delivery O2 Flow Rate FiO2 05/20/17 06:00 76 16 80/44 99 05/20/17 04:00 97.7 05/20/17 02:16 21 05/19/17 14:00 Room Air 05/16/17 10:00 2.0 Intake and Output 05/19/17 05/19/17 05/20/17 15:00 23:00 07:00 Intake Total 805 ml 1020 ml 880 ml Output Total 600 ml 625 ml 300 ml Balance 205 ml 395 ml 580 ml Exam General: NAD,awake, alert, fatigued HEENT: NC/AT. pupils are equal. round. Neck: NO JVD. no stridor. CV: RRR. no gallop or rubs. Lungs: CTA b/l. no wheezing or rhonchi. GI: Soft, nontender, nondistended, no rebound or guarding Extremity: no edema, no clubbing. Results Result Diagram: 05/20/17 0539 05/20/17 0539 Results 24 hrs Laboratory Tests Test 05/20/17 05:39 05/20/17 07:26 05/20/17 08:33 White Blood Count 7.1 Red Blood Count 2.60 L Hemoglobin 8.4 L Hematocrit 25.5 L Mean Corpuscular Volume 98.1 Mean Corpuscular Hemoglobin 32.3 Mean Corpuscular Hemoglobin Concent 32.9 Red Cell Distribution Width 12.5 Platelet Count 126 L Mean Platelet Volume 9.7 Neutrophils % 73.7 Lymphocytes % 15.6 Monocytes % 8.6 Eosinophils % 1.3 Basophils % 0.1 Nucleated Red Blood Cells % 0.0 Neutrophils # (Manual) 5.2 Lymphocytes # 1.1 Monocytes # 0.6 Eosinophils # 0.1 Basophils # 0.0 Nucleated Red Blood Cells # 0.0 Sodium Level 141 Potassium Level 4.0 Chloride Level 113 H Carbon Dioxide Level 16 L Anion Gap 16 Blood Urea Nitrogen 12 Creatinine 0.77 Glucose Level 59 #L Calcium Level 8.3 L Magnesium Level 2.1 Total Bilirubin 1.3 Direct Bilirubin 0.00 Indirect Bilirubin 1.3 H Aspartate Amino Transf (AST/SGOT) 46 Alanine Aminotransferase (ALT/SGPT) 43 Alkaline Phosphatase 53 Creatine Kinase 194 # Creatine Kinase Index 2.6 Creatinine Kinase MB (Mass) 5.12 H Troponin I 2.770 *H B-Type Natriuretic Peptide 780 H Total Protein 5.8 L Albumin 3.1 L Globulin 2.70 Albumin/Globulin Ratio 1.14 Bedside Glucose 61 L 126 Medications Medications Current Medications Aspirin (Halfprin) 81 mg DAILY PO Last administered on 05/19/17 11:28; Admin Dose 81 MG; Start 05/16/17 at 09:00 Ranitidine HCl (Zantac) 150 mg BID PO Last administered on 05/19/17 21:47; Admin Dose 150 MG; Start 05/16/17 at 09:00 Nitroglycerin (Nitroglycerin (Sl Tab) 0.4 Mg) 1 tab Q5M PRN SL ANGINA Last administered on 05/18/17 04:37; Admin Dose 1 TAB; Start 05/16/17 at 07:00 Morphine Sulfate (morphine) 2 mg Q4H PRN IV PAIN LEVEL 7-10 Last administered on 05/19/17 19:21; Admin Dose 2 MG; Start 05/16/17 at 07:00 Acetaminophen (Tylenol Tab) 650 mg Q6H PRN PO PAIN AND OR ELEVATED TEMP Last administered on 05/18/17 09:01; Admin Dose 650 MG; Start 05/16/17 at 07:00 Metoprolol Tartrate (Lopressor) 25 mg BID PO Last administered on 05/19/17 21: 47; Admin Dose 25 MG; Start 05/16/17 at 11:00 Atorvastatin Calcium (Lipitor) 80 mg HS PO Last administered on 05/19/17 21:46 ; Admin Dose 80 MG; Start 05/17/17 at 21:00 Ticagrelor 90 mg 90 mg BID PO Last administered on 05/19/17 22:50; Admin Dose 90 MG; Start 05/17/17 at 21:00 Sodium Chloride 1,000 ml @ 100 mls/hr Q10H IV Last administered on 05/20/17 07 :00; Admin Dose 100 MLS/HR; Start 05/17/17 at 20:16 Pantoprazole/ Sodium Chloride (Protonix Iv/NS) 100 ml @ 10 mls/hr Q10H IV Last administered on 05/20/17 07:01; Admin Dose 10 MLS/HR; Start 05/17/17 at 21: 00 Isosorbide Dinitrate (Isordil) 20 mg TID PO Last administered on 05/19/17 16:02 ; Admin Dose 20 MG; Start 05/18/17 at 09:00 Docusate Sodium (Colace) 250 mg BID PO Last administered on 05/19/17 21:46; Admin Dose 250 MG; Start 05/19/17 at 09:00 Ondansetron HCl (Zofran Inj) 4 mg Q6H PRN IV NAUSEA AND/OR VOMITING Last administered on 05/19/17 17:20; Admin Dose 4 MG; Start 05/19/17 at 17:30 CORETTA SUTTON MD May 20, 2017 08:47
[2017-05-20] MEDS: DEXTROSE 5%-0.9% NACL 1,000 ML IV SCH ×2 (09:11→21:00)
[2017-05-20] MEDS: ASPIRIN (EC) 81 MG TAB PO SCH (09:11)
[2017-05-20] MEDS: RANITIDINE 150 MG TAB PO SCH (09:11)
[2017-05-20] MEDS: ISOSORBIDE DINITRATE 20 MG TAB PO SCH ×3 (09:12→22:03)
[2017-05-20] MEDS: DOCUSATE SODIUM 250 MG CAP PO SCH ×2 (09:12→21:03)
[2017-05-20] MEDS: TICAGRELOR 90 MG TABLET PO SCH ×2 (09:18→21:03)
[2017-05-20] MEDS: METOPROLOL 25 MG TAB PO SCH ×2 (11:00→20:59)
--- NOTE | 2017-05-20 18:19 | CONS ---
Date/Time of Note Date/Time of Note DATE: 05/20/17 TIME: 18:17 Consult Date/Type/Reason Admit Date/Time May 16, 2017 at 03:14 Type of Consultation: INTERVENTIONAL CARDIOLOGY Ordering Provider: CORETTA SUTOTN MD Subjective cardiology follow up note: Discussed with staff rhythms he was reviewed. Discussed with patient's family. pt remains in NSR no more chest pain or pressure yesterday. she has no groin pain no more N.V. COFFE GROUND EMESIS. NO bleeding OBJECTIVE: General: no acute distress HEENT: NC/AT. pupils are equal. round. NECK: NO JVD. no stridor. CV: RRR. systolic murmur; no gallop or rubs. PULM: no wheezing or rhonchi. GI: SOFT, NT, ND, no rebound or guarding Extremity: trace B/L LE edema. no clubbing. neuro: awake and alert, OX3. Psych: calm and pleasant rectal: deferred : normal vascular: R femoral sheath removed wiht no hematoma or bleeding or bruit. ECHO: 1. Normal left ventricular systolic function. Normal left ventricular cavity size. Mild concentric left ventricular hypertrophy. Ejection fraction is visually estimated at 60 %. Tissue Doppler/Mitral Doppler indices are consistent with impaired relaxation (Stage I diastolic dysfunction). ECG reviewed. 05/18/17: NSR. nonspecific ST abn. (significantly improved compared to 05/17/17) Objective Vital Signs Date Time Temp Pulse Resp B/P Pulse Ox O2 Delivery O2 Flow Rate FiO2 05/20/17 16:05 98.3 82 20 125/60 98 05/20/17 02:16 21 05/19/17 14:00 Room Air 05/16/17 10:00 2.0 Intake and Output 05/19/17 05/19/17 05/20/17 15:00 23:00 07:00 Intake Total 805 ml 1020 ml 880 ml Output Total 600 ml 625 ml 300 ml Balance 205 ml 395 ml 580 ml Results/Medications Result Diagram: 05/20/17 0539 05/20/17 0539 Results 24 hrs Laboratory Tests Test 05/20/17 05:39 05/20/17 07:26 05/20/17 08:33 05/20/17 17:05 White Blood Count 7.1 Red Blood Count 2.60 L Hemoglobin 8.4 L Hematocrit 25.5 L Mean Corpuscular Volume 98.1 Mean Corpuscular Hemoglobin 32.3 Mean Corpuscular Hemoglobin Concent 32.9 Red Cell Distribution Width 12.5 Platelet Count 126 L Mean Platelet Volume 9.7 Neutrophils % 73.7 Lymphocytes % 15.6 Monocytes % 8.6 Eosinophils % 1.3 Basophils % 0.1 Nucleated Red Blood Cells % 0.0 Neutrophils # (Manual) 5.2 Lymphocytes # 1.1 Monocytes # 0.6 Eosinophils # 0.1 Basophils # 0.0 Nucleated Red Blood Cells # 0.0 Sodium Level 141 Potassium Level 4.0 Chloride Level 113 H Carbon Dioxide Level 16 L Anion Gap 16 Blood Urea Nitrogen 12 Creatinine 0.77 Glucose Level 59 #L Calcium Level 8.3 L Magnesium Level 2.1 Total Bilirubin 1.3 Direct Bilirubin 0.00 Indirect Bilirubin 1.3 H Aspartate Amino Transf (AST/SGOT) 46 Alanine Aminotransferase (ALT/SGPT) 43 Alkaline Phosphatase 53 Creatine Kinase 194 # Creatine Kinase Index 2.6 Creatinine Kinase MB (Mass) 5.12 H Troponin I 2.770 *H B-Type Natriuretic Peptide 780 H Total Protein 5.8 L Albumin 3.1 L Globulin 2.70 Albumin/Globulin Ratio 1.14 Bedside Glucose 61 L 126 102 Medications Current Medications Aspirin (Halfprin) 81 mg DAILY PO Last administered on 05/20/17 09:11; Admin Dose 81 MG; Start 05/16/17 at 09:00 Ranitidine HCl (Zantac) 150 mg BID PO Last administered on 05/20/17 09:11; Admin Dose 150 MG; Start 05/16/17 at 09:00 Nitroglycerin (Nitroglycerin (Sl Tab) 0.4 Mg) 1 tab Q5M PRN SL ANGINA Last administered on 05/18/17 04:37; Admin Dose 1 TAB; Start 05/16/17 at 07:00 Morphine Sulfate (morphine) 2 mg Q4H PRN IV PAIN LEVEL 7-10 Last administered on 05/19/17 19:21; Admin Dose 2 MG; Start 05/16/17 at 07:00 Acetaminophen (Tylenol Tab) 650 mg Q6H PRN PO PAIN AND OR ELEVATED TEMP Last administered on 05/18/17 09:01; Admin Dose 650 MG; Start 05/16/17 at 07:00 Metoprolol Tartrate (Lopressor) 25 mg BID PO Last administered on 05/19/17 21: 47; Admin Dose 25 MG; Start 05/16/17 at 11:00 Atorvastatin Calcium (Lipitor) 80 mg HS PO Last administered on 05/19/17 21:46 ; Admin Dose 80 MG; Start 05/17/17 at 21:00 Ticagrelor 90 mg 90 mg BID PO Last administered on 05/20/17 09:18; Admin Dose 90 MG; Start 05/17/17 at 21:00 Pantoprazole/ Sodium Chloride (Protonix Iv/NS) 100 ml @ 10 mls/hr Q10H IV Last administered on 05/20/17 14:45; Admin Dose 10 MLS/HR; Start 05/17/17 at 21: 00 Isosorbide Dinitrate (Isordil) 20 mg TID PO Last administered on 05/20/17 14:45 ; Admin Dose 20 MG; Start 05/18/17 at 09:00 Docusate Sodium (Colace) 250 mg BID PO Last administered on 05/20/17 09:12; Admin Dose 250 MG; Start 05/19/17 at 09:00 Ondansetron HCl 4 mg 4 mg Q6H PRN IV NAUSEA AND/OR VOMITING Last administered on 05/19/17 17:20; Admin Dose 4 MG; Start 05/19/17 at 17:30 Dextrose/Sodium Chloride (D5-NS) 1,000 ml @ 100 mls/hr Q10H IV Last administered on 05/20/17 09:11; Admin Dose 100 MLS/HR; Start 05/20/17 at 09:00 Assessment/Plan Chief Complaint/Hosp Course Assessment: 1. NSTEMI: s/p complex PCI LAD/ LCX 2. abnormal ECG due to above 3. HTN 4. Dyslipidemia 5. obesity 6. hypo K: corrected now 7. coffee ground emesis: resolved now 8. anemia. 9. CV preop evaluation: d/w anesthesiologist. pt is currently stable from cardiac stand point with moderate risk of CV events. however, the longer it can be delayed the lower the expected risk would be. RECOMMENDATIONS: Continue with aspirin and brilinta. Statins. brilinta. PPI. . f/u GI consultations please. replace electrolyte prn NTG as tolerated. dc planning over the weekend once ok with GI. THANK YOU NATALY GAN MD [facility] Problems: NATALY GAN MD May 20, 2017 18:19
[2017-05-20] MEDS ORDERED: PROPOFOL 20 ML ONE (18:32)
[2017-05-20] MEDS ORDERED: FENTAnyl 50 MCG/ML VIAL ONE (18:32)
[2017-05-20] MEDS ORDERED: MIDAZOLAM 1 MG/ML 2 ML INJ ONE (18:32)
--- NOTE | 2017-05-20 18:47 | OPPN ---
Date/Time of Note Date/Time of Note DATE: 05/20/17 TIME: 18:44 Proc Note GI Procedure date: May 20, 2017 Pre-procedure Diagnosis * GI bleeding/hematemesis Post-procedure Diagnosis Assessment: * Severe erosive esophagitis * Hiatal hernia, moderate-sized * Mild gastritis. No biopsies obtained Plan: * Protonix 40 mg twice daily * Continue present management * Monitor for evidence of bleeding * No definitive contraindication to anticoagulation Operation Performed Surgeon: CONSTANTINE REAL MD Anesthesia Type: MAC Anesthesiologist: CARY MANN MD Estimated blood loss: none Transfusion Required: no Specimen: none Grafts/Implants: none Complications: no Pt Condition post procedure: stable Disposition: PACU Procedure Description After informed consent, with the patient/relatives understanding the procedure, its indications, potential risks and complications, including but not limited to : allergic reaction, bleeding, perforation or infection, and after all pertinent questions were answered to the patients satisfaction, the patient/ relatives signed witnessed informed consent. Following this, premedication was administered slowly IV push under careful cardiovascular and respiratory monitoring with pulse oximetry, automatic blood pressure, and dietetic intern. Once the sedative effect was achieved the patient was place in the left lateral decubitus, the panendoscope was introduced and advanced under visual control. Careful examination of the upper gastrointestinal tract, both on insertion as well as withdrawal of the instrument disclosing the following findings: ESOPHAGUS: the mucosa of the entire esophagus was carefully examined and showed the following findings: There is significant erythema edema and superficial erosion of the mucosa in the distal esophagus. A moderate-sized hiatal hernia is present. Otherwise the mucosa appears within normal limits. There is no evidence of varices, neoplasm, or stricture. STOMACH: Upon entrance to the stomach air was insufflated, the gastric kaufman distended normally. The mucosa of the fundus, body and antrum of the stomach was carefully examined both head-on and on retroflexion, and showed the following findings: There is mild erythema of the mucosa of the body and antrum of the stomach. Otherwise the mucosa appears within normal limits with no abnormalities. There is no evidence of ulcers or neoplasm. PYLORUS: The pylorus was carefully examined and showed the following findings: the pylorus appears patent and within normal limits, with no evidence of gastric outlet obstruction. DUODENUM: The duodenal mucosa was carefully examined in the duodenal bulb as well as the second portion of the duodenum and showed the following findings: the mucosa appears unremarkable with no evidence of duodenitis, ulcer or neoplasm. CONSTANTINE REAL MD May 20, 2017 18:47
[2017-05-20] MEDS ORDERED: ONDANSETRON 4 MG INJ IV PRN (19:00)
[2017-05-20] MEDS: ATORVASTATIN 80 MG TAB PO SCH (20:59)
[2017-05-21] VITALS (12 sets, daily range): BP systolic 97–104; BP diastolic 50–55; PULSE 73–83; RESP 16–20
[2017-05-21] MEDS: morphine 2 MG INJ IV PRN (01:16)
[2017-05-21] MEDS: DEXTROSE 5%-0.9% NACL 1,000 ML IV SCH (05:07)
[2017-05-21] MEDS: PANTOPRAZOLE 40 MG INJ IV SCH ×2 (05:07→18:38)
[2017-05-21] MEDS: TICAGRELOR 90 MG TABLET PO SCH ×2 (08:24→20:30)
[2017-05-21] MEDS: ASPIRIN (EC) 81 MG TAB PO SCH (08:24)
[2017-05-21] MEDS: DOCUSATE SODIUM 250 MG CAP PO SCH ×2 (08:25→20:28)
[2017-05-21] MEDS: METOPROLOL 25 MG TAB PO SCH ×2 (08:26→20:32)
[2017-05-21 09:40] LABS: BASOPHILS % 0.2 % (0.0-2.0); EOSINOPHILS # 0.1 10^3/ul (0.0-0.5); EOSINOPHILS % 0.8 % (0.0-7.0); HEMATOCRIT 26.6 % (37.0-47.0); HEMOGLOBIN 8.4 g/dl (12.0-16.0); LYMPHOCYTES # 0.7 10^3/ul (0.8-2.9); LYMPHOCYTES % 11.4 % (15.0-51.0); MEAN CORPUSCULAR HEMOGLOBIN 30.9 pg (29.0-33.0); MEAN CORPUSCULAR HGB CONC 31.6 g/dl (32.0-37.0); MEAN CORPUSCULAR VOLUME 97.8 fl (82.0-101.0); MEAN PLATELET VOLUME 9.9 fl (7.4-10.4); MONOCYTE # 0.4 10^3/ul (0.3-0.9); MONOCYTES % 6.6 % (0.0-11.0); NEUTROPHILS % 80.5 % (39.0-77.0); PLATELET COUNT 145 10^3/UL (140-415); RED BLOOD COUNT 2.72 10^6/ul (4.20-5.40); RED CELL DISTRIBUTION WIDTH 12.6 % (11.5-14.5); WHITE BLOOD COUNT 6.5 10^3/ul (4.8-10.8)
[2017-05-21 09:56] LABS: ALBUMIN 3.3 g/dl (3.3-4.9); ALBUMIN/GLOBULIN RATIO 1.1; BILIRUBIN,INDIRECT 1.2 mg/dl (0-1.1); BILIRUBIN,TOTAL 1.2 mg/dl (0.2-1.3); CALCIUM 8.6 mg/dl (8.4-10.2); CREATININE 0.76 mg/dl (0.44-1.00); MAGNESIUM 1.8 mg/dl (1.7-2.5); POTASSIUM 3.5 mmol/L (3.5-5.1); TOTAL PROTEIN 6.3 g/dl (6.1-8.1)
--- NOTE | 2017-05-21 10:33 | PN ---
Date/Time of Note Date/Time of Note DATE: 05/21/17 TIME: 10:32 Assessment/Plan VTE Prophylaxis VTE Prophylaxis Intervention: SCD's Lines/Catheters IV [facility] Type (from [facility]): Peripheral IV Urinary Cath still in place: No Assessment/Plan Assessment/Plan 1. NSTEMI: s/p complex PCI LAD/ LCX 2. abnormal ECG due to above 3. HTN 4. Dyslipidemia 5. obesity 6. hypo K: corrected now 7. coffee ground emesis: resolved now 8. anemia. 9. CV preop evaluation: d/w anesthesiologist. pt is currently stable from cardiac stand point with moderate risk of CV events. however, the longer it can be delayed the lower the expected risk would be. RECOMMENDATIONS: Continue with aspirin and brilinta. Statins. PPI. . f/u GI consultations please. replace electrolyte prn NTG as tolerated. dc planning once ok with GI. Subjective 24 Hr Interval Summary Free Text/Dictation The patient stable Exam/Review of Systems Vital Signs Vitals Vital Signs Date Time Temp Pulse Resp B/P Pulse Ox O2 Delivery O2 Flow Rate FiO2 05/21/17 08:00 80 05/21/17 07:32 98.2 20 100/52 98 05/20/17 18:34 Room Air 05/20/17 02:16 21 Intake and Output 05/20/17 05/20/17 05/21/17 15:00 23:00 07:00 Intake Total 50 ml 120 ml Output Total 1100 ml 150 ml Balance -1050 ml -150 ml 120 ml Results Result Diagram: 05/21/17 0902 05/21/17 0902 Results 24 hrs Laboratory Tests Test 05/20/17 17:05 05/21/17 09:02 Bedside Glucose 102 White Blood Count 6.5 Red Blood Count 2.72 L Hemoglobin 8.4 L Hematocrit 26.6 L Mean Corpuscular Volume 97.8 Mean Corpuscular Hemoglobin 30.9 Mean Corpuscular Hemoglobin Concent 31.6 L Red Cell Distribution Width 12.6 Platelet Count 145 Mean Platelet Volume 9.9 Neutrophils % 80.5 H Lymphocytes % 11.4 L Monocytes % 6.6 Eosinophils % 0.8 Basophils % 0.2 Nucleated Red Blood Cells % 0.0 Neutrophils # (Manual) 5.2 Lymphocytes # 0.7 L Monocytes # 0.4 Eosinophils # 0.1 Basophils # 0.0 Nucleated Red Blood Cells # 0.0 Sodium Level 136 Potassium Level 3.5 Chloride Level 106 Carbon Dioxide Level 24 Anion Gap 10 # Blood Urea Nitrogen 11 Creatinine 0.76 Glucose Level 109 # Calcium Level 8.6 Magnesium Level 1.8 Total Bilirubin 1.2 Direct Bilirubin 0.00 Indirect Bilirubin 1.2 H Aspartate Amino Transf (AST/SGOT) 49 H Alanine Aminotransferase (ALT/SGPT) 53 Alkaline Phosphatase 56 Total Protein 6.3 Albumin 3.3 Globulin 3.00 Albumin/Globulin Ratio 1.10 Medications Medications Current Medications Aspirin (Halfprin) 81 mg DAILY PO Last administered on 05/21/17 08:24; Admin Dose 81 MG; Start 05/16/17 at 09:00 Nitroglycerin (Nitroglycerin (Sl Tab) 0.4 Mg) 1 tab Q5M PRN SL ANGINA Last administered on 05/18/17 04:37; Admin Dose 1 TAB; Start 05/16/17 at 07:00 Morphine Sulfate (morphine) 2 mg Q4H PRN IV PAIN LEVEL 7-10 Last administered on 05/21/17 01:16; Admin Dose 2 MG; Start 05/16/17 at 07:00 Acetaminophen (Tylenol Tab) 650 mg Q6H PRN PO PAIN AND OR ELEVATED TEMP Last administered on 05/18/17 09:01; Admin Dose 650 MG; Start 05/16/17 at 07:00 Metoprolol Tartrate (Lopressor) 25 mg BID PO Last administered on 05/21/17 08: 26; Admin Dose 25 MG; Start 05/16/17 at 11:00 Atorvastatin Calcium (Lipitor) 80 mg HS PO Last administered on 05/20/17 20:59 ; Admin Dose 80 MG; Start 05/17/17 at 21:00 Ticagrelor (Brilinta) 90 mg BID PO Last administered on 05/21/17 08:24; Admin Dose 90 MG; Start 05/17/17 at 21:00 Isosorbide Dinitrate (Isordil) 20 mg TID PO Last administered on 05/20/17 22:03 ; Admin Dose 20 MG; Start 05/18/17 at 09:00 Docusate Sodium (Colace) 250 mg BID PO Last administered on 05/21/17 08:25; Admin Dose 250 MG; Start 05/19/17 at 09:00 Ondansetron HCl 4 mg 4 mg Q6H PRN IV NAUSEA AND/OR VOMITING Last administered on 05/19/17 17:20; Admin Dose 4 MG; Start 05/19/17 at 17:30 Dextrose/Sodium Chloride (D5-NS) 1,000 ml @ 100 mls/hr Q10H IV Last administered on 05/21/17 05:07; Admin Dose 100 MLS/HR; Start 05/20/17 at 09:00 Pantoprazole (Protonix Iv) 40 mg BID@06,18 IV Last administered on 05/21/17 05: 07; Admin Dose 40 MG; Start 05/21/17 at 06:00 ROBERT GOVEA MD May 21, 2017 10:33
--- NOTE | 2017-05-21 11:17 | PN ---
Date/Time of Note Date/Time of Note DATE: 05/21/17 TIME: 11:11 Assessment/Plan VTE Prophylaxis VTE Prophylaxis Intervention: heparin Lines/Catheters IV C[facility]ter Type [facility]from [facility]): Peripheral IV Urinary Cath still in place: No Assessment/Plan Assessment/Plan Assessment: NSTEMI s/p complex PCI LAD/ LCX GI bleed EGD * Severe erosive esophagitis * Hiatal hernia, moderate-sized * Mild gastritis. No biopsies obtained Plan: * Protonix 40 mg twice daily * Continue present management * Monitor for evidence of bleeding * No definitive contraindication to anticoagulation * case discussed with Dr Houston * Further orders will depend on clinical course Subjective 24 Hr Interval Summary Free Text/Dictation * Course reviewed with RN * Patient seen and examined * EGD Severe erosive esophagitis Hiatal hernia, moderate-sized Mild gastritis. No biopsies obtained * No untoward events overnight Exam/Review of Systems Vital Signs Vitals Vital Signs Date Time Temp Pulse Resp B/P Pulse Ox O2 Delivery O2 Flow Rate FiO2 05/21/17 11:00 98.1 69 18 104/53 97 05/20/17 18:34 Room Air 05/20/17 02:16 21 Intake and Output 05/20/17 05/20/17 05/21/17 15:00 23:00 07:00 Intake Total 50 ml 120 ml Output Total 1100 ml 150 ml Balance -1050 ml -150 ml 120 ml Exam Constitutional: alert, oriented Head: atraumatic, normocephalic Neck: non-tender, supple Respiratory: clear to auscultation, normal air movement Cardiovascular: nl pulses, regular rate and rhythm Gastrointestinal: non-tender, soft Musculoskeletal: nl extremities to inspection, nl gait and stance Extremities: normal pulses Neurological: nl speech, nl strength Skin: nl turgor, No rash or lesions Results Result Diagram: 05/21/1790105/21/17 0902 Results 24 hrs Laboratory Tests Test 05/20/17 17:05 05/21/17 09:02 Bedside Glucose 102 White Blood Count 6.5 Red Blood Count 2.72 L Hemoglobin 8.4 L Hematocrit 26.6 L Mean Corpuscular Volume 97.8 Mean Corpuscular Hemoglobin 30.9 Mean Corpuscular Hemoglobin Concent 31.6 L Red Cell Distribution Width 12.6 Platelet Count 145 Mean Platelet Volume 9.9 Neutrophils % 80.5 H Lymphocytes % 11.4 L Monocytes % 6.6 Eosinophils % 0.8 Basophils % 0.2 Nucleated Red Blood Cells % 0.0 Neutrophils # (Manual) 5.2 Lymphocytes # 0.7 L Monocytes # 0.4 Eosinophils # 0.1 Basophils # 0.0 Nucleated Red Blood Cells # 0.0 Sodium Level 136 Potassium Level 3.5 Chloride Level 106 Carbon Dioxide Level 24 Anion Gap 10 # Blood Urea Nitrogen 11 Creatinine 0.76 Glucose Level 109 # Calcium Level 8.6 Magnesium Level 1.8 Total Bilirubin 1.2 Direct Bilirubin 0.00 Indirect Bilirubin 1.2 H Aspartate Amino Transf (AST/SGOT) 49 H Alanine Aminotransferase (ALT/SGPT) 53 Alkaline Phosphatase 56 Total Protein 6.3 Albumin 3.3 Globulin 3.00 Albumin/Globulin Ratio 1.10 Medications Medications Current Medications Aspirin (Halfprin) 81 mg DAILY PO Last administered on 05/21/17 08:24; Admin Dose 81 MG; Start 05/16/17 at 09:00 Nitroglycerin (Nitroglycerin (Sl Tab) 0.4 Mg) 1 tab Q5M PRN SL ANGINA Last administered on 05/18/17 04:37; Admin Dose 1 TAB; Start 05/16/17 at 07:00 Morphine Sulfate (morphine) 2 mg Q4H PRN IV PAIN LEVEL 7-10 Last administered on 05/21/17 01:16; Admin Dose 2 MG; Start 05/16/17 at 07:00 Acetaminophen (Tylenol Tab) 650 mg Q6H PRN PO PAIN AND OR ELEVATED TEMP Last administered on 05/18/17 09:01; Admin Dose 650 MG; Start 05/16/17 at 07:00 Metoprolol Tartrate (Lopressor) 25 mg BID PO Last administered on 05/21/17 08: 26; Admin Dose 25 MG; Start 05/16/17 at 11:00 Atorvastatin Calcium (Lipitor) 80 mg HS PO Last administered on 05/20/17 20:59 ; Admin Dose 80 MG; Start 05/17/17 at 21:00 Ticagrelor (Brilinta) 90 mg BID PO Last administered on 05/21/17 08:24; Admin Dose 90 MG; Start 05/17/17 at 21:00 Isosorbide Dinitrate (Isordil) 20 mg TID PO Last administered on 05/20/17 22:03 ; Admin Dose 20 MG; Start 05/18/17 at 09:00 Docusate Sodium (Colace) 250 mg BID PO Last administered on 05/21/17 08:25; Admin Dose 250 MG; Start 05/19/17 at 09:00 Ondansetron HCl 4 mg 4 mg Q6H PRN IV NAUSEA AND/OR VOMITING Last administered on 05/19/17 17:20; Admin Dose 4 MG; Start 05/19/17 at 17:30 Dextrose/Sodium Chloride (D5-NS) 1,000 ml @ 100 mls/hr Q10H IV Last administered on 05/21/17 05:07; Admin Dose 100 MLS/HR; Start 05/20/17 at 09:00 Pantoprazole (Protonix Iv) 40 mg BID@06,18 IV Last administered on 05/21/17 05: 07; Admin Dose 40 MG; Start 05/21/17 at 06:00 TERESA ARANA NP May 21, 2017 11:17
[2017-05-21] MEDS: ISOSORBIDE DINITRATE 20 MG TAB PO SCH ×3 (11:26→20:32)
[2017-05-21] MEDS: ONDANSETRON 4 MG INJ IV PRN (11:26)
--- NOTE | 2017-05-21 15:39 | PN ---
Date/Time of Note Date/Time of Note DATE: 05/21/17 TIME: 15:31 Assessment/Plan VTE Prophylaxis VTE Prophylaxis Intervention: other Lines/Catheters IV C[facility] Type (from [facility] Peripheral IV Urinary Cath still in place: No Assessment/Plan Assessment/Plan 1. Severe erosive esophagitis - No longer experiencing emesis but does admit to epigastric discomfort - On Protonix IV BID, will switch to PO in the am - GI on board and input appreciated. continue medical course and monitor for bleeding - hemodynamically stable and H/H stable. If remains stable possible d/c tmrw - FOBT negative 2. NSTEMI - s/p complex PCI LAD/ LCX - on Brilinta and aspirin - Cardiology on board and recommendations appreciated. Okay for d/c once cleared by GI 3. HTN - BP currently stable 4. Dyslipidemia - on statin 5. obesity - counseled patient about proper diet and increasing physical activity 6. hypokalemia - 3.5 today, replaced - will continue monitoring Subjective 24 Hr Interval Summary Free Text/Dictation Patient states she was experiencing epigastric chest pressure with radiation to her left shoulder and to chin yesterday that lasted for minutes. She received morphine and pain resolved. Patient denies any further episodes of chest pain, shortness of breath, nausea, vomiting, or abdominal issues. Underwent EGD yesterday with no issues. Exam/Review of Systems Vital Signs Vitals Vital Signs Date Time Temp Pulse Resp B/P Pulse Ox O2 Delivery O2 Flow Rate FiO2 05/21/17 15:18 98.3 76 18 100/52 97 05/20/17 18:34 Room Air 05/20/17 02:16 21 Intake and Output 05/20/17 05/20/17 05/21/17 15:00 23:00 07:00 Intake Total 50 ml 120 ml Output Total 1100 ml 150 ml Balance -1050 ml -150 ml 120 ml Results Result Diagram: 05/21/17 0902 05/21/17 0902 Results 24 hrs Laboratory Tests Test 05/20/17 17:05 05/21/17 09:02 05/21/17 13:30 Bedside Glucose 102 White Blood Count 6.5 Red Blood Count 2.72 L Hemoglobin 8.4 L Hematocrit 26.6 L Mean Corpuscular Volume 97.8 Mean Corpuscular Hemoglobin 30.9 Mean Corpuscular Hemoglobin Concent 31.6 L Red Cell Distribution Width 12.6 Platelet Count 145 Mean Platelet Volume 9.9 Neutrophils % 80.5 H Lymphocytes % 11.4 L Monocytes % 6.6 Eosinophils % 0.8 Basophils % 0.2 Nucleated Red Blood Cells % 0.0 Neutrophils # (Manual) 5.2 Lymphocytes # 0.7 L Monocytes # 0.4 Eosinophils # 0.1 Basophils # 0.0 Nucleated Red Blood Cells # 0.0 Sodium Level 136 Potassium Level 3.5 Chloride Level 106 Carbon Dioxide Level 24 Anion Gap 10 # Blood Urea Nitrogen 11 Creatinine 0.76 Glucose Level 109 # Calcium Level 8.6 Magnesium Level 1.8 Total Bilirubin 1.2 Direct Bilirubin 0.00 Indirect Bilirubin 1.2 H Aspartate Amino Transf (AST/SGOT) 49 H Alanine Aminotransferase (ALT/SGPT) 53 Alkaline Phosphatase 56 Total Protein 6.3 Albumin 3.3 Globulin 3.00 Albumin/Globulin Ratio 1.10 Stool Occult Blood NEGATIVE Medications Medications Current Medications Aspirin (Halfprin) 81 mg DAILY PO Last administered on 05/21/17 08:24; Admin Dose 81 MG; Start 05/16/17 at 09:00 Nitroglycerin (Nitroglycerin (Sl Tab) 0.4 Mg) 1 tab Q5M PRN SL ANGINA Last administered on 05/18/17 04:37; Admin Dose 1 TAB; Start 05/16/17 at 07:00 Morphine Sulfate (morphine) 2 mg Q4H PRN IV PAIN LEVEL 7-10 Last administered on 05/21/17 01:16; Admin Dose 2 MG; Start 05/16/17 at 07:00 Acetaminophen (Tylenol Tab) 650 mg Q6H PRN PO PAIN AND OR ELEVATED TEMP Last administered on 05/18/17 09:01; Admin Dose 650 MG; Start 05/16/17 at 07:00 Metoprolol Tartrate (Lopressor) 25 mg BID PO Last administered on 05/21/17 08: 26; Admin Dose 25 MG; Start 05/16/17 at 11:00 Atorvastatin Calcium (Lipitor) 80 mg HS PO Last administered on 05/20/17 20:59 ; Admin Dose 80 MG; Start 05/17/17 at 21:00 Ticagrelor (Brilinta) 90 mg BID PO Last administered on 05/21/17 08:24; Admin Dose 90 MG; Start 05/17/17 at 21:00 Isosorbide Dinitrate (Isordil) 20 mg TID PO Last administered on 05/21/17 11:26 ; Admin Dose 20 MG; Start 05/18/17 at 09:00 Docusate Sodium (Colace) 250 mg BID PO Last administered on 05/21/17 08:25; Admin Dose 250 MG; Start 05/19/17 at 09:00 Ondansetron HCl (Zofran Inj) 4 mg Q6H PRN IV NAUSEA AND/OR VOMITING Last administered on 05/21/17 11:26; Admin Dose 4 MG; Start 05/19/17 at 17:30 Pantoprazole (Protonix Iv) 40 mg BID@06,18 IV Last administered on 05/21/17 05: 07; Admin Dose 40 MG; Start 05/21/17 at 06:00 CORETTA SUTTON MD May 21, 2017 15:39
[2017-05-21] MEDS ORDERED: POTASSIUM CHLORIDE 250 ML IVPB ONE (16:00)
[2017-05-21] MEDS ORDERED: POTASSIUM CHLORIDE (SR) 20 MEQ TAB PO STA (18:41)
[2017-05-21] MEDS: ATORVASTATIN 80 MG TAB PO SCH (20:28)
[2017-05-22] VITALS (8 sets, daily range): BP systolic 97–107; BP diastolic 50–58; PULSE 72–85; RESP 16–20
[2017-05-22] MEDS ORDERED: PANTOPRAZOLE (EC) 40 MG TAB PO SCH (06:00)
[2017-05-22 06:19] LABS: BASOPHILS % 0.2 % (0.0-2.0); EOSINOPHILS # 0.1 10^3/ul (0.0-0.5); EOSINOPHILS % 1.5 % (0.0-7.0); HEMATOCRIT 29.8 % (37.0-47.0); HEMOGLOBIN 9.4 g/dl (12.0-16.0); LYMPHOCYTES # 1.3 10^3/ul (0.8-2.9); LYMPHOCYTES % 20.1 % (15.0-51.0); MEAN CORPUSCULAR HEMOGLOBIN 31.1 pg (29.0-33.0); MEAN CORPUSCULAR HGB CONC 31.5 g/dl (32.0-37.0); MEAN CORPUSCULAR VOLUME 98.7 fl (82.0-101.0); MEAN PLATELET VOLUME 10.1 fl (7.4-10.4); MONOCYTE # 0.6 10^3/ul (0.3-0.9); MONOCYTES % 9.1 % (0.0-11.0); NEUTROPHILS % 68.8 % (39.0-77.0); PLATELET COUNT 163 10^3/UL (140-415); RED BLOOD COUNT 3.02 10^6/ul (4.20-5.40); RED CELL DISTRIBUTION WIDTH 12.7 % (11.5-14.5); WHITE BLOOD COUNT 6.5 10^3/ul (4.8-10.8)
[2017-05-22 06:36] LABS: ALBUMIN 4.1 g/dl (3.3-4.9); CALCIUM 9.2 mg/dl (8.4-10.2); CREATININE 0.85 mg/dl (0.44-1.00); MAGNESIUM 1.9 mg/dl (1.7-2.5); PHOSPHORUS 4.3 mg/dl (2.5-4.9); POTASSIUM 3.8 mmol/L (3.5-5.1)
[2017-05-22] MEDS: DOCUSATE SODIUM 250 MG CAP PO SCH (07:46)
[2017-05-22] MEDS: METOPROLOL 25 MG TAB PO SCH (08:21)
[2017-05-22] MEDS: ASPIRIN (EC) 81 MG TAB PO SCH (08:21)
[2017-05-22] MEDS: TICAGRELOR 90 MG TABLET PO SCH (08:27)
--- NOTE | 2017-05-22 10:11 | PN ---
DATE: 05/22/2017 SUBJECTIVE DATA: The patient denies chest pain, or shortness of breath. OBJECTIVE DATA: VITAL SIGNS: Temperature 99, pulse 78, blood pressure 107/58. HEART: Regular rate and rhythm. NECK: No jugular venous distention. LUNGS: Clear to auscultation bilaterally. ABDOMEN: Soft. EXTREMITIES: Reveal no edema. LAB: Results. White count 6.5, hematocrit 29.8, platelet count 163. Sodium 142, potassium 3.8, BUN 14, creatinine 0.85. MEDICATIONS: 1. Protonix. 2. Zofran. 3. Colace. 4. Estradiol. 5. Lipitor. 6. Brilinta. 7. Metoprolol. 8. Aspirin. 9. Nitroglycerin. ASSESSMENT: 1. Non ST-elevation myocardial infarction status post percutaneous coronary intervention of left anterior descending. Remains on dual platelet anti therapy. 2. Coffee-grounds emesis. Status post EGD with severe erosive esophagitis noted. Continue current medications. The patient will be seen by Dr. Bauman resuming tomorrow, May 23. Dictated By: Murphy Redman MD /[email or web address]/[email or web address] /Document#: [id number]
--- NOTE | 2017-05-22 10:34 | PN ---
Date/Time of Note Date/Time of Note DATE: 05/22/17 TIME: 10:30 Assessment/Plan VTE Prophylaxis VTE Prophylaxis Intervention: SCD's Lines/Catheters IV C[facility] Type (from [facility] Saline Lock Urinary Cath still in place: No Assessment/Plan Assessment/Plan Assessment: NSTEMI s/p complex PCI LAD/ LCX GI bleed EGD * Severe erosive esophagitis * Hiatal hernia, moderate-sized * Mild gastritis. No biopsies obtained Plan: * Protonix 40 mg twice daily * Continue present management * will sign off and follow up as needed * case discussed with Dr Houston Subjective 24 Hr Interval Summary Free Text/Dictation * course reviewed * patient seen and examined * no untoward events overnight Exam/Review of Systems Vital Signs Vitals Vital Signs Date Time Temp Pulse Resp B/P Pulse Ox O2 Delivery O2 Flow Rate FiO2 05/22/17 08:03 78 05/22/17 04:02 99.0 18 107/58 100 05/21/17 20:01 21 05/20/17 18:34 Room Air Intake and Output 05/21/17 05/21/17 05/22/17 15:00 23:00 07:00 Intake Total 900 ml Balance 900 ml Exam Constitutional: alert, well developed Neck: non-tender, supple Respiratory: clear to auscultation, normal air movement Cardiovascular: nl pulses, regular rate and rhythm Gastrointestinal: non-tender, soft Musculoskeletal: nl extremities to inspection, nl gait and stance Extremities: normal pulses Neurological: nl speech, nl strength Skin: nl turgor, No rash or lesions Lymph: nl lymph nodes Results Result Diagram: 05/22/17 0544 05/22/17 0544 Results 24 hrs Laboratory Tests Test 05/21/17 13:30 05/22/17 05:44 Stool Occult Blood NEGATIVE White Blood Count 6.5 Red Blood Count 3.02 L Hemoglobin 9.4 L Hematocrit 29.8 L Mean Corpuscular Volume 98.7 Mean Corpuscular Hemoglobin 31.1 Mean Corpuscular Hemoglobin Concent 31.5 L Red Cell Distribution Width 12.7 Platelet Count 163 Mean Platelet Volume 10.1 Neutrophils % 68.8 Lymphocytes % 20.1 Monocytes % 9.1 Eosinophils % 1.5 Basophils % 0.2 Nucleated Red Blood Cells % 0.0 Neutrophils # (Manual) 4.5 Lymphocytes # 1.3 Monocytes # 0.6 Eosinophils # 0.1 Basophils # 0.0 Nucleated Red Blood Cells # 0.0 Sodium Level 142 Potassium Level 3.8 Chloride Level 111 H Carbon Dioxide Level 21 Anion Gap 14 Blood Urea Nitrogen 14 Creatinine 0.85 Glucose Level 100 Calcium Level 9.2 Phosphorus Level 4.3 Magnesium Level 1.9 Albumin 4.1 Medications Medications Current Medications Aspirin (Halfprin) 81 mg DAILY PO Last administered on 05/22/17 08:21; Admin Dose 81 MG; Start 05/16/17 at 09:00 Nitroglycerin (Nitroglycerin (Sl Tab) 0.4 Mg) 1 tab Q5M PRN SL ANGINA Last administered on 05/18/17 04:37; Admin Dose 1 TAB; Start 05/16/17 at 07:00 Morphine Sulfate (morphine) 2 mg Q4H PRN IV PAIN LEVEL 7-10 Last administered on 05/21/17 01:16; Admin Dose 2 MG; Start 05/16/17 at 07:00 Acetaminophen (Tylenol Tab) 650 mg Q6H PRN PO PAIN AND OR ELEVATED TEMP Last administered on 05/18/17 09:01; Admin Dose 650 MG; Start 05/16/17 at 07:00 Metoprolol Tartrate (Lopressor) 25 mg BID PO Last administered on 05/22/17 08: 21; Admin Dose 25 MG; Start 05/16/17 at 11:00 Atorvastatin Calcium (Lipitor) 80 mg HS PO Last administered on 05/21/17 20:28 ; Admin Dose 80 MG; Start 05/17/17 at 21:00 Ticagrelor (Brilinta) 90 mg BID PO Last administered on 05/22/17 08:27; Admin Dose 90 MG; Start 05/17/17 at 21:00 Isosorbide Dinitrate (Isordil) 20 mg TID PO Last administered on 05/21/17 11:26 ; Admin Dose 20 MG; Start 05/18/17 at 09:00 Docusate Sodium (Colace) 250 mg BID PO Last administered on 05/21/17 20:28; Admin Dose 250 MG; Start 05/19/17 at 09:00 Ondansetron HCl (Zofran Inj) 4 mg Q6H PRN IV NAUSEA AND/OR VOMITING Last administered on 05/21/17 11:26; Admin Dose 4 MG; Start 05/19/17 at 17:30 Pantoprazole (Protonix Tab) 40 mg BID@06,18 PO Last administered on 05/22/17t 05:17; Admin Dose 40 MG; Start 05/22/17 at 06:00 TERESA ARANA NP May 22, 2017 10:34
[2017-05-22] MEDS: ISOSORBIDE DINITRATE 20 MG TAB PO SCH ×2 (11:00→13:00)
--- NOTE | 2017-05-22 11:31 | PN ---
Date/Time of Note Date/Time of Note DATE: 05/22/17 TIME: 11:31 Assessment/Plan VTE Prophylaxis VTE Prophylaxis Intervention: other Lines/Catheters IV Catheter Type (from Nrs): Saline Lock Urinary Cath still in place: No Assessment/Plan Assessment/Plan 1. Severe erosive esophagitis - Still c/o slight epigastric discomfort but no nausea, vomiting, melena, or hematemesis - Will continue on PPI BID - Appreciate GI input - hemodynamically stable and H/H stable 2. NSTEMI - s/p complex PCI LAD/ LCX - on Brilinta and aspirin - Cardiology on board and recommendations appreciated. 3. HTN - BP currently stable 4. Dyslipidemia - on statin 5. obesity - counseled patient about proper diet and increasing physical activity 6. Disposition - cleared for discharge home >30 mins spent on discussing discharge planning with patient Subjective 24 Hr Interval Summary Free Text/Dictation Patient doing well and resting comfortably. Still experiencing burning in epigastric area but denies any chest pain, shortness of breath, nausea, vomiting , or other abdominal issues. Exam/Review of Systems Vital Signs Vitals Vital Signs Date Time Temp Pulse Resp B/P Pulse Ox O2 Delivery O2 Flow Rate FiO2 05/22/17 08:03 78 05/22/17 04:02 99.0 18 107/58 100 05/21/17 20:01 21 05/20/17 18:34 Room Air Intake and Output 05/21/17 05/21/17 05/22/17 15:00 23:00 07:00 Intake Total 900 ml Balance 900 ml Exam General: NAD, awake and alert. Resting comfortably CVS: regular rate and rhythm, no murmurs Lungs: CTA b/l. no wheezing or crackles GI: soft, NT, ND, no rebound or guarding ext: no cyanosis, clubbing, or edema Results Result Diagram: 05/22/17 0544 05/22/17 0544 Results 24 hrs Laboratory Tests Test 05/21/17 13:30 05/22/17 05:44 Stool Occult Blood NEGATIVE White Blood Count 6.5 Red Blood Count 3.02 L Hemoglobin 9.4 L Hematocrit 29.8 L Mean Corpuscular Volume 98.7 Mean Corpuscular Hemoglobin 31.1 Mean Corpuscular Hemoglobin Concent 31.5 L Red Cell Distribution Width 12.7 Platelet Count 163 Mean Platelet Volume 10.1 Neutrophils % 68.8 Lymphocytes % 20.1 Monocytes % 9.1 Eosinophils % 1.5 Basophils % 0.2 Nucleated Red Blood Cells % 0.0 Neutrophils # (Manual) 4.5 Lymphocytes # 1.3 Monocytes # 0.6 Eosinophils # 0.1 Basophils # 0.0 Nucleated Red Blood Cells # 0.0 Sodium Level 142 Potassium Level 3.8 Chloride Level 111 H Carbon Dioxide Level 21 Anion Gap 14 Blood Urea Nitrogen 14 Creatinine 0.85 Glucose Level 100 Calcium Level 9.2 Phosphorus Level 4.3 Magnesium Level 1.9 Albumin 4.1 Medications Medications Current Medications Aspirin (Halfprin) 81 mg DAILY PO Last administered on 05/22/17 08:21; Admin Dose 81 MG; Start 05/16/17 at 09:00 Nitroglycerin (Nitroglycerin (Sl Tab) 0.4 Mg) 1 tab Q5M PRN SL ANGINA Last administered on 05/18/17 04:37; Admin Dose 1 TAB; Start 05/16/17 at 07:00 Morphine Sulfate (morphine) 2 mg Q4H PRN IV PAIN LEVEL 7-10 Last administered on 05/21/17 01:16; Admin Dose 2 MG; Start 05/16/17 at 07:00 Acetaminophen (Tylenol Tab) 650 mg Q6H PRN PO PAIN AND OR ELEVATED TEMP Last administered on 05/18/17 09:01; Admin Dose 650 MG; Start 05/16/17 at 07:00 Metoprolol Tartrate (Lopressor) 25 mg BID PO Last administered on 05/22/17 08: 21; Admin Dose 25 MG; Start 05/16/17 at 11:00 Atorvastatin Calcium (Lipitor) 80 mg HS PO Last administered on 05/21/17 20:28 ; Admin Dose 80 MG; Start 05/17/17 at 21:00 Ticagrelor (Brilinta) 90 mg BID PO Last administered on 05/22/17 08:27; Admin Dose 90 MG; Start 05/17/17 at 21:00 Isosorbide Dinitrate (Isordil) 20 mg TID PO Last administered on 05/21/17 11:26 ; Admin Dose 20 MG; Start 05/18/17 at 09:00 Docusate Sodium (Colace) 250 mg BID PO Last administered on 05/21/17 20:28; Admin Dose 250 MG; Start 05/19/17 at 09:00 Ondansetron HCl (Zofran Inj) 4 mg Q6H PRN IV NAUSEA AND/OR VOMITING Last administered on 05/21/17 11:26; Admin Dose 4 MG; Start 05/19/17 at 17:30 Pantoprazole (Protonix Tab) 40 mg BID@06,18 PO Last administered on 05/22/17 05:17; Admin Dose 40 MG; Start 05/22/17 at 06:00 CORETTA SUTTON MD May 22, 2017 11:31
[2017-05-22] MEDS ORDERED: PANT40TA4 PO (12:53)
[2017-05-22] MEDS ORDERED: METO-448 PO (12:53)
[2017-05-22] MEDS ORDERED: ATOR80TA75 PO (12:53)
[2017-05-22] MEDS ORDERED: NIT4 SL (12:53)
[2017-05-22] MEDS ORDERED: ISOS20TA19 PO (12:53)
[2017-05-22] MEDS ORDERED: TICA90TA PO (12:53)
--- NOTE | 2017-05-22 12:58 | PDOCDIS ---
Discharge Instructions DIAGNOSIS Discharge Diagnosis Non ST-elevation myocardial infarction status post percutaneous coronary intervention of left anterior descending. CONDITION Patient Condition: Good HOME CARE INSTRUCTIONS: Diet Instructions: Low Fat /CholesterolSpecial Diet: LOW FAT LOW CHOLES 2GM NA ACTIVITY: Activity Restrictions: No Restrictions Avoid heavy lifting Avoid Heavy Housework FOLLOW UP/APPOINTMENTS Follow-up Plan 1. Take all your medications as prescribed which include: Aspirin, Lipitor, Brilinta, Metoprolol, Isosorbide mononitrate, Protonix 2. Stop Simvastatin, Losartan, and Amlodipine which you were taking prior to your hospitalization 3. Follow up with your regular doctor in 1-2 weeks 4. Follow up with cardiology REFERRALS Other Referrals Chris Bauman MD Specialty : Cardiology Office Address [address] [place] [id number] Office Office CORETTA SUTTON MD May 22, 2017 12:58
--- NOTE | 2017-05-23 09:32 | DS ---
Date/Time of Note Date/Time of Note DATE: 05/23/17 TIME: Discharge Summary Admission/Discharge Info Admit Date/Time May 16, 2017 at 03:14 Discharge Date/Time May 22, 2017 at 17:[address]-elevation myocardial infarction status post percutaneous coronary intervention of left anterior descending. Patient Condition: Good Consults Dr. Bauman, Cardiology Dr. Houston, Gastroenterology Hx of Present Illness This is a 56-year-old female with a history of hypertension, dyslipidemia, GERD who presented to the emergency department complaining of chest pain. Pain is located in the mid chest and left-sided with radiation to the left arm and discussed pressure-like. Pain started a few hours prior to ER arrival while she was sitting at home watching TV. When she presented to the ER, first troponin was found to be elevated 0.198. EKG was no ST-T wave abnormalities. Patient actually came to the ER 3 days ago complaining of burning type chest pain and was discharged from the ER. . Hospital Course Patient was admitted to telemetry floor and cardiac workup was performed. Patients troponins continued to trend upwards and left heart catheterization sedating right and left coronary angiogram Cocker with percutaneous coronary intervention was performed on 05/17/17. Stent was placed in the LAD and LCX. She was started on dual antiplatelet therapy and cardiac medications were optimized. She was transferred to the ICU for closer monitoring and was noted to have vomited red tinged coffee ground emesis. She was started on protonix drip and GI was consulted with plans for EGD. EGD was performed when patient was medically stable which showed severe erosive esophagitis, hiatal hernia, moderate-sized and mild gastritis. No biopsies were obtained. Patient was doing well and no longer experiencing chest pain yet was having epigastric discomfort. She was continued on protonix PO BID for relief. She was discharged in good condition. Home Meds Active Scripts Pantoprazole* (Pantoprazole*) 40 Mg Tablet.dr, 40 MG PO BID@06,18 for 30 Days, # 60 TAB take one tablet twice a day by mouth Prov:CORETTA SUTTON MD 05/22/17 Metoprolol Tartrate* (Lopressor*) 25 Mg Tab, 25 MG PO BID for 30 Days, #60 TAB Take one tablet twice a day by mouth Prov:CORETTA SUTTON MD 05/22/17 Nitroglycerin* (Nitrostat*) 0.4 Mg Tab.subl, 1 TAB SL Q5M Y for ANGINA for 30 Days, #90 TAB Take every 5 minutes as needed for chest pain relief Prov:CORETTA SUTTON MD 05/22/17 Isosorbide Dinitrate* (Isosorbide Dinitrate*) 20 Mg Tablet, 20 MG PO TID for 30 Days, #90 TAB Take one tablet three times a day by mouth Prov:CORETTA SUTTON MD 05/22/17 Atorvastatin* (Atorvastatin*) 80 Mg Tablet, 80 MG PO HS for 30 Days, #30 TAB take one tablet daily at night Prov:CORETTA SUTTON MD 05/22/17 Ticagrelor* (Brilinta*) 90 Mg Tablet, 90 MG PO BID for 30 Days, #30 TAB Take one tablet daily by mouth Prov:CORETTA SUTTON MD 05/22/17 Reported Medications Aspirin (Aspir-Low) 81 Mg Tablet.dr, 81 MG PO DAILY 05/13/17 Discontinued Reported Medications Losartan Potassium* (Losartan Potassium*) 25 Mg Tablet, 25 MG PO DAILY, TAB 05/13/17 Amlodipine Besylate* (Amlodipine Besylate*) 10 Mg Tablet, 10 MG PO DAILY, #30 TAB 05/13/17 Simvastatin* (Zocor*) 20 Mg Tablet, 20 MG PO HS, TAB 08/03/15 Discontinued Scripts Ranitidine Hcl* (Zantac*) 150 Mg Tablet, 150 MG PO BID, #60 TAB Prov:JALYN MEDRANO DO 05/13/17 Follow-up Plan Follow up with PCP in 1-2 weeks. Follow up with Cardiology and continue all medications as prescribed. Primary Care Provider [facility] Time spent on discharge: > 30 minutes (spent with patient discussing discharge and follow up plan) CORETTA SUTTON MD May 23, 2017 09:29
== END 2017-05-22 17:00 | disposition home or self-care (01) | DRG 247 ==
LOC: E/R 23:07 → MS4 05-16 03:14 → ICU 05-17 16:05 → TEL 05-20 15:35
PROVIDERS: ADMIT Internal Medicine; ATTEND Internal Medicine
PROC: B2011ZZ Plain Radiography of Multiple Coronary Arteries using Low Osmolar Contrast (ICD-10-PCS; 2017-05-17)
PROC: 027136Z Dilation of Coronary Artery, Two Arteries with Three Drug-eluting Intraluminal Devices, Percutaneous Approach (ICD-10-PCS; principal; 2017-05-17 18:00)
PROC: 02C03ZZ Extirpation of Matter from Coronary Artery, One Artery, Percutaneous Approach (ICD-10-PCS; 2017-05-17 18:00)
PROC: 4A023N7 Measurement of Cardiac Sampling and Pressure, Left Heart, Percutaneous Approach (ICD-10-PCS; 2017-05-17 18:00)
PROC: 0DJ08ZZ Inspection of Upper Intestinal Tract, Via Natural or Artificial Opening Endoscopic (ICD-10-PCS; 2017-05-20)
DX: I21.4 Non-ST elevation (NSTEMI) myocardial infarction (principal); K92.0 Hematemesis; K22.10 Ulcer of esophagus without bleeding; I10 Essential (primary) hypertension; I25.110 Atherosclerotic heart disease of native coronary artery with unstable angina pectoris; E78.5 Hyperlipidemia, unspecified; K21.9 Gastro-esophageal reflux disease without esophagitis; E66.9 Obesity, unspecified; Z68.31 Body mass index [BMI] 31.0-31.9, adult; E87.6 Hypokalemia; Z79.02 Long term (current) use of antithrombotics/antiplatelets; Z79.82 Long term (current) use of aspirin; K44.9 Diaphragmatic hernia without obstruction or gangrene; K29.70 Gastritis, unspecified, without bleeding
CPT/HCPCS: 36415; 71010; 80053; 80061; 80069; 82270; 82550; 82553; 82962; 83735; 83880; 84439; 84443; 84484; 85025; 85610; 85730; 93005; 93306; 93458; C1725; C1757; C1769; C1874; C1876; C1887; C1894; C9113; C9601; J0461; J0583; J1644; J2250; J2270; J2405; J3010; J3475; J3480; J7030; J7040; J7042; Q9967

== ENCOUNTER 2019-01-03 07:36 | Observation (INO) | payer MEDICAID ==
[2019-01-03] VITALS (18 sets, daily range): BP systolic 95–151; BP diastolic 52–85; PULSE 61–72; RESP 13–31; Ht 144.8 cm; Wt 52.4 kg
[~2019-01-03] VITALS: Ht 144.8 cm; Wt 52.4 kg
[~2019-01-03 07:36] MED LIST changes: -AMLO-147 PO; +ATOR-2 PO; +ISOS20TA19 PO; -LOSA25TA5 PO; +METO-448 PO; +NITR0.4T39 SL; +PANT40TA4 PO; -RANI150T9 PO; -SIMV20TA PO; +TICA90TA PO
[2019-01-03] MEDS ORDERED: DIAZEPAM 5 MG TAB PO ONE (08:30)
[2019-01-03] MEDS ORDERED: FAMOTIDINE 20 MG TAB PO ONE (08:30)
[2019-01-03] MEDS ORDERED: DIPHENHYDRAMINE 50 MG CAP PO ONE (08:30)
[2019-01-03] MEDS ORDERED: METO-335 PO (08:41)
[2019-01-03] MEDS ORDERED: TICA90TA PO (08:41)
[2019-01-03] MEDS ORDERED: FAMO40OR2 PO (08:42)
[2019-01-03] MEDS ORDERED: ATOR-2 PO (08:42)
[2019-01-03] MEDS ORDERED: ISOS20TA19 PO (08:42)
[2019-01-03] MEDS ORDERED: ASPI81TA52 PO (08:43)
[2019-01-03] MEDS ORDERED: SOD CHLORIDE 0.9% 1,000 ML IV SCH (10:34)
--- NOTE | 2019-01-03 10:36 | SIPON ---
Date/Time of Note Date/Time of Note DATE: 01/03/19 TIME: 10:34 Operative Report Preoperative Diagnosis 1.angina 2.abnl mpi Postoperative Diagnosis 1.obstructive cad s/p stent x 1 to proximal LAD Operation/Procedure Performed 1.C 2.PTCA/stent x 1 to LAD Surgeon see signature line engineering assistant 1.Dilan Anesthesia: moderate sedation Estimated blood loss: minimal Transfusion Required none Specimen none Grafts/Implants none Complications none LUCRECIA DEE Jan 03, 2019 10:36
[2019-01-03] MEDS ORDERED: ONDANSETRON 4 MG INJ IV PRN (11:00)
[2019-01-03] MEDS ORDERED: OXYCODONE/ACETAMINOPHEN (5/325) TAB PO PRN (11:00)
[2019-01-03] MEDS ORDERED: AL HYDROX/MG HYDROX/SIMETH 30 ML CUP PO PRN (11:00)
[2019-01-03] MEDS ORDERED: DIAZEPAM 2 MG TAB PO PRN (11:00)
--- NOTE | 2019-01-03 17:38 | CARRPT ---
DATE OF PROCEDURE: 01/03/2019 TYPE OF PROCEDURES: 1. Left heart catheterization. 2. Coronary angiography. 3. Percutaneous transluminal coronary angioplasty with placement of drug-eluting stent x1 to proxima l LAD, 2.75 x 12 mm. 4. Moderate conscious sedation. ATTENDING PHYSICIAN: Lucrecia Champion MD REFERRING PHYSICIAN: Self-referred. INDICATION: Chest pain refractory to medical therapy, history of stents, positive stress test. TYPE OF ANESTHESIA: Conscious and local. BRIEF HISTORY AND HOSPITAL COURSE: Ms. Hagan is a 58-year-old female with history of hypertensio n, dyslipidemia, coronary artery disease, status post prior PTCA and stent placed in the LAD and circ umflex in 2017, who presented with recurrent complaints of substernal chest pain and placed in the as cending medical therapy but continued to have chest pain directly brought to cardiac catheterization lab in order to assess for the possibility of recurrent significant obstructive coronary artery disea se lending to symptoms of chest pain and positive stress test findings. DESCRIPTION OF PROCEDURE: After informed consent was obtained, the patient was brought to the [facility] cardiac catheterization lab where her right radial area was prepped and draped in sterile fashion. A 2% lidocaine was infiltrated into the right radial area in order to achieve a dequate anesthesia. Using the modified Seldinger technique, the radial artery was cannulated and a 6 -Cameroonian sheath was placed. A 6-Cameroonian JL3 catheter was used to cannulate the left main coronary osti um. With contrast injection, multiple views of the left coronary arterial system were obtained. JL3 was brought over a guidewire and a JR4 was used to cannulate the right coronary arterial ostium. Wi contrast injection, multiple views of the right coronary arterial system were obtained. JR4 was u sed to cross the LV. LVEDP was measured, pulled back across the aortic valve to assess for significa nt gradient, which there was none and removed. Subsequently at this time given the finding of signif icant obstructive lesion in the patient's proximal LAD, we moved directly into an interventional proc edure. A Q3 guide was used to cannulate the left main coronary ostium. With some difficulty, I was able to initially attempted to cross the lesion with a 0.014 balance guidewire was placed. This prov ed unsuccessful and then I was able to successfully cross it with a 0.014 Marine [employer] 50 guidewire. Initia lly, I was unable to pass any balloon but after repositioning the guidewire and wire ____ vessel, I w as able to pass a balloon into the area of stenosis and do balloon inflations from 12 to 14 atmospher es with a 2.0 balloon x 12 mm. This was removed and was able to pass a 2.75 x 12 cm ____ lesion wher e I deployed it at 12 atmospheres and postdilated it with the stent delivery system up to 14 atmosphe res. The stent delivery balloon was removed. Followup angiogram was obtained revealing excellent re sult, deployment of stent, RAFAEL 3 flow throughout the vessel. No signs of complication including per foration or dissection and additionally noted that to diagonal immediately it bifurcated right betwee n the lesions was widely patent with no effect upon the patient's diagonal that bifurcated midway thr ough the lesion. Subsequently at this time, the patient's initial guide and guidewires were removed. Final angiographic images were obtained revealing excellent result deployment of the stent, RAFAEL-3 flow throughout the vessel, no signs of complication including perforation or dissection. Subsequent ly at this time, the patient was given 200 mcg IC nitroglycerin and further angiographic images were obtained revealing excellent result. Subsequently at this time, the patient's catheter was removed. Sheath was removed. TR band was applied. This completed the procedure. There were no noted compli cations. See findings. FINDINGS: Coronary angiography: Left main ____ but ostially likely some disease proximally up to 40 % to 50% and then a mid body left main stenosis up to approximately 30% to 40%. The LAD proximally i s a 3 mm vessel and has a focal 80% stenosis just the bifurcation of the diagonal. Remainder of the LAD is free from significant focal stenoses. The diagonal itself has an ostial 30% stenosis. The ci rcumflex proximally is a 3.5 mm vessel, has a widely patent stent in its proximal portion with no sig nificant in-stent restenosis. The remainder of the circumflex after the mid portion, there is a 30% stenosis. There are 2 distal branching obtuse marginals 2 mm each with no significant focal stenoses and a mid branch obtuse marginal 2 mm vessel, very tortuous, no significant focal stenoses. The rig ht coronary artery proximally is a 2.5 mm vessel, has mild luminal irregularities of 10% to 20%, give s off small PDA sub 2 mm vessel and a 2 mm posterolateral branch each with no significant focal steno ses. Measurement of LVEDP of 14 to 16. PTCA and stent placement: Prior to PTCA and stent placement in patient's proximal LAD, there is an 8 0% hazy-appearing stenosis. Post-PTCA and stent placement, no residual stenosis, RAFAEL 3 flow through out the vessel, no signs of complication including perforation or dissection. TOTAL FLUOROSCOPY TIME: 18.6 minutes. TOTAL CONTRAST: 275 mL. IMPRESSION: 1. Single vessel obstructive coronary artery disease involving proximal LAD lesion, status post succ essful PTCA and stent placement x1 with drug-eluting stent 2.75 x 12 mm. 2. Widely patent proximal LAD stent and a widely patent proximal circumflex stent. 3. No significant aortic stenosis by gradient. RECOMMENDATIONS: In light of procedure findings at this time, we would: 1. Maximize medical management. 2. Aggressive risk factor reduction. 3. The patient will be maintained on aspirin 81 mg and Brilinta 90 mg 1 tab p.o. b.i.d. for at least the next 6 months and aspirin indefinitely. 4. The patient will be admitted to postanesthesia care and to telemetry floor for post-catheterizati on observation. Dictated By: LUCRECIA TORRES/NEO Conf#: [id number] DID#: [id number]
[2019-01-03] MEDS: TICAGRELOR 90 MG TABLET PO SCH (20:45)
[2019-01-03] MEDS: ACETAMINOPHEN 325 MG TAB PO PRN (20:45)
[2019-01-04] VITALS (15 sets, daily range): BP systolic 88–124; BP diastolic 51–62; PULSE 55–80; RESP 10–25
[2019-01-04] MEDS ORDERED: ASPIRIN 81 MG TAB ONE (07:57)
[2019-01-04] MEDS: TICAGRELOR 90 MG TABLET PO SCH (08:04)
[2019-01-04] MEDS ORDERED: ASPIRIN (EC) 81 MG TAB PO SCH (09:00)
[2019-01-04] MEDS: ACETAMINOPHEN 325 MG TAB PO PRN (09:14)
--- NOTE | 2019-01-04 10:55 | CONS ---
Assessment/Plan Assessment/Plan Hospital Course (Demo Recall) IMP: 1.cad s/p stent x 1 to mid LAD with HAYDER POD31 2.H/O prior PTCA/stent 3.HTN 4.HL Recc: -Ambulate patient and if no sig Chest pain then ok for d/c from cardiac standpoint -Continue asa/brilinta -Resume outpatient statin/BB/oral nitrates Consultation Date/Type/Reason Admit Date/Time Jan 03, 2019 at 15:41 Initial Consult Date 01/03/19 Type of Consult Cardiology Reason for Consultation chest pain Requesting Provider: ELLIOTT EUGENE MD Date/Time of Note DATE: 01/04/19 TIME: 10:51 Exam/Review of Systems Vital Signs Vitals Vital Signs Date Temp Pulse Resp B/P (MAP) Pulse Ox O2 O2 Flow FiO2 Time Delivery Rate 01/04/19 71 08:00 01/04/19 15 96/57 (70) 100 Room Air 07:00 01/04/19 98.1 04:00 Intake and Output 01/03/19 01/03/19 01/04/19 1515:00 23:00 07:00 IntakeIntake Total 600 ml 240 ml 420 ml OutputOutput Total 1200 ml 400 ml 400 ml BalanceBalance -600 ml -160 ml 20 ml Exam Exam Review of Systems: CONSTITUTIONAL: No fevers, chills. PULMONARY: No sob CARDIOVASCULAR: No chest pain/palpitations GASTROINTESTINAL: No nausea/vomiting. GENITOURINARY: No hematuria/dysuria. MUSCULOSKELETAL: No myagias/arthalgias. PSYCHIATRIC: The patient denies depression. NEUROLOGIC: No weakness Constitutional: alert Psych: no complaints Head: normocephalic ENMT: mucosa pink and moist Neck: supple, jvd (9 cm water) Respiratory: diminished breath sounds (at bases/B) Cardiovascular: regular rate and rhythm Gastrointestinal: soft, non-tender Musculoskeletal: muscle tone (normal) Extremities: edema (none) Neurological: other (No focal deficits) Labs Result Diagram: 01/04/19 0446 01/04/19 0446 Results 24hrs Laboratory Tests Test 01/04/19 04:46 White Blood Count 4.7 #L Red Blood Count 3.06 L Hemoglobin 10.2 L Hematocrit 31.6 L Mean Corpuscular Volume 103.3 H Mean Corpuscular Hemoglobin 33.3 H Mean Corpuscular Hemoglobin Concent 32.3 Red Cell Distribution Width 12.1 Platelet Count 179 Mean Platelet Volume 9.6 Immature Granulocytes % 0.200 Neutrophils % 49.6 Lymphocytes % 38.9 Monocytes % 9.2 Eosinophils % 1.7 Basophils % 0.4 Nucleated Red Blood Cells % 0.0 Immature Granulocytes # 0.010 Neutrophils # 2.3 Lymphocytes # 1.8 Monocytes # 0.4 Eosinophils # 0.1 Basophils # 0.0 Nucleated Red Blood Cells # 0.0 Sodium Level 143 Potassium Level 3.7 Chloride Level 112 H Carbon Dioxide Level 24 Anion Gap 7 Blood Urea Nitrogen 14 Creatinine 0.71 Est Glomerular Filtrat Rate mL/min > 60 Glucose Level 93 Calcium Level 9.3 Medications Medications Current Medications Aspirin (Halfprin) 81 mg DAILY PO Last administered on 01/04/19at 08:03; Admin Dose 81 MG; Start 01/04/19 at 09:00 Ticagrelor (Brilinta) 90 mg BID PO Last administered on 01/04/19at 08:04; Admin Dose 90 MG; Start 01/03/19 at 21:00 Acetaminophen (Tylenol Tab) 650 mg Q4H PRN PO PAIN Last administered on 01/04/19at 09:14; Admin Dose 650 MG; Start 01/03/19 at 11:00 Oxycodone/ Acetaminophen (Percocet (5/ 325)) 1 tab Q4H PRN PO PAIN; Start 12/12 12/29 at 11:00 Diazepam (Valium) 2 mg Q6H PRN PO RESTLESSNESS; Start 01/03/19 at 11:00 Al Hydrox/Mg Hydrox/Simethicone (Mag-Al Plus) 30 ml Q4H PRN PO GASTROINTESTINAL UPSET; Start 01/03/19 at 11:00 Ondansetron HCl (Zofran Inj) 4 mg Q4H PRN IV NAUSEA AND/OR VOMITING; Start 01/03/19 at 11:00 LUCRECIA DEE Jan 04, 2019 10:55
--- NOTE | 2019-01-04 12:07 | PDOCDIS ---
Discharge Instructions CONDITION [id number] Patient Condition: [id number] Fair HOME CARE INSTRUCTIONS: [id number] Diet Instructions: [id number] Low Fat /Cholesterol ACTIVITY: [id number] Activity Restrictions: [id number] Slowly Increase Activity FOLLOW UP/APPOINTMENTS Follow-up Plan PMD & monument carver in 1-2 weeks ELLIOTT EUGENE MD Jan 04, 2019 12:07
--- NOTE | 2019-01-04 13:28 | HP ---
DATE OF ADMISSION: 01/03/2019 CHIEF COMPLAINT: Chest pain. HISTORY OF PRESENT ILLNESS: The patient is a 58-year-old female with history of coronary artery dise ase with non-ST elevation CT back in 2017. The patient at that time underwent PCI of left anterior d escending. Patient also has history of hypertension, dyslipidemia and GERD. The patient saw Dr. Whitley arrington as an outpatient. Patients medical treatment was optimized; however, she continued to have symp toms; therefore, she was brought into hospital on the day of admission and was taken to collaborating supervising physician. Th e patient was noted to have single vessel obstructive coronary artery disease involving proximal LAD lesion and underwent successful PTCA and stent placement with drug-eluting stent via right radial art delio. The patient has been brought into ICU for further evaluation and management. The patient denie s any chest pain after procedure. No numbness, tingling in the right hand. No reported headache, di zziness, syncope. No history of cough, sore throat. No history of focal weakness. No history of cl audication, no history of any acute skin rash or any joint swelling. Mild right wrist discomfort fro m recent catheterization present. No reported blurry vision. No report of any focal weakness in the past or TIA. Respiratory system unremarkable. PAST MEDICAL HISTORY: As stated above. In addition, the patient also has history of GERD and underw ent EGD back in 2016 and was noted to have hiatal hernia, esophagitis and gastritis. The patient has been taking Pepcid for that. ALLERGIES: No known drug allergies. SOCIAL HISTORY: No smoking, no alcohol. FAMILY HISTORY: Negative for premature coronary artery disease. PHYSICAL EXAMINATION: GENERAL: The patient is awake, alert, fairly oriented. VITAL SIGNS: On the day of admission. The patient's vital signs revealed temperature 98.5, pulse 66 , respirations 16, blood pressure 151/67, O2 sat 100% on room air. HEENT: Atraumatic, normocephalic. Pupils round, react to light. Nose is normal externally. Oropha rynx clear. NECK: Supple, no mass, no thyromegaly. CHEST: Fairly clear. No heaviness. CARDIOVASCULAR: Normal, no murmur. ABDOMEN: Soft, nontender. Bowel sounds present. EXTREMITIES: No leg edema. NEUROLOGIC: The patient is awake, alert with no gross focal deficit. LABORATORY DATA: WBC 7.5, hemoglobin 10.1, platelet 214, MCV 104. Sodium 144, potassium 3.6, BUN 16 , creatinine 0.7, glucose 91, calcium 9.45. LDL 42, HDL 46. Chest x-ray done on the day of admission revealed stable 5 mm calcified granuloma in the left upper lobe, otherwise unremarkable. IMPRESSION: 1. Unstable angina, status post TELEMARKETING FUNDRAISER and placement of drug-eluting stent to proximal left anterior de scending. 2. History of NSTEMI couple of years ago, status post stenting of LAD and circumflex at that time. 3. Aspirin and Brilinta. 4. Hypertension. The patient will be continued on Toprol-XL and Isosorbide. 5. Dyslipidemia. Continue Lipitor. 6. Gastroesophageal reflux disease. Will continue Pepcid. 7. Plan of care discussed with Dr. Dee. If patient continues to do well, she will be discharged home on 01/04/2019. Dictated By: ELLIOTT EUGENE MD AB/NTS Conf#: [id number] DID#: [id number] CC: LUCRECIA DEE MD;*EndCC*
--- NOTE | 2019-01-04 13:35 | HP ---
Date/Time of Note Date/Time of Note DATE: 01/04/19 TIME: 13:28 Assessment/Plan VTE Prophylaxis Risk score (from [facility] [place])>0 risk: 1 SCD applied (from [facility]): No Pharmacological prophylaxis: other Pharm contraindication: other Lines/Catheters IV Catheter Type (from [facility] [place]): Saline Lock Urinary Cath still in place: No Assessment/Plan Assessment/Plan - Chest pain- ruled out ACS- none at present -Left heart catheterization; Coronary angiography - admit to tele - pain control - PPI - ASA - Low chol diet -Percutaneous transluminal coronary angioplasty with placement of drug-eluting stent x1 to proximal LAD, 2.75 x 12 mm; - dyslipidemia - coronary artery disease -status post prior PTCA and stent placed in the LAD and circumflex in 2017, GERD - SP EGD Result Diagram: 01/04/19 0446 01/04/19 0446 Results 24hrs Laboratory Tests Test 01/04/19 04:46 01/04/19 11:32 White Blood Count 4.7 #L Red Blood Count 3.06 L Hemoglobin 10.2 L Hematocrit 31.6 L Mean Corpuscular Volume 103.3 H Mean Corpuscular Hemoglobin 33.3 H Mean Corpuscular Hemoglobin Concent 32.3 Red Cell Distribution Width 12.1 Platelet Count 179 Mean Platelet Volume 9.6 Immature Granulocytes % 0.200 Neutrophils % 49.6 Lymphocytes % 38.9 Monocytes % 9.2 Eosinophils % 1.7 Basophils % 0.4 Nucleated Red Blood Cells % 0.0 Immature Granulocytes # 0.010 Neutrophils # 2.3 Lymphocytes # 1.8 Monocytes # 0.4 Eosinophils # 0.1 Basophils # 0.0 Nucleated Red Blood Cells # 0.0 Sodium Level 143 Potassium Level 3.7 Chloride Level 112 H Carbon Dioxide Level 24 Anion Gap 7 Blood Urea Nitrogen 14 Creatinine 0.71 Est Glomerular Filtrat Rate mL/min > 60 Glucose Level 93 Calcium Level 9.3 Creatine Kinase 115 Creatine Kinase Index 0.8 Creatinine Kinase MB (Mass) 0.91 Troponin I 0.127 *H HPI/ROS Admit Date/Time Admit Date/Time Jan 03, 2019 at 15:41 Hx of Present Illness BRIEF HISTORY AND HOSPITAL COURSE: Ms. Hagan is a 58-year-old female with history of hypertension, dyslipidemia, coronary artery disease, status post prior PTCA and stent placed in the LAD and circumflex in 2017, who presented with recurrent complaints of substernal chest pain and placed in the ascending medical therapy but continued to have chest pain directly brought to cardiac catheterization lab in order to assess for the possibility of recurrent significant obstructive coronary artery disease lending to symptoms of chest p ain and positive stress test findings. She underwent Left heart catheterization; Coronary angiography; Percutaneous transluminal coronary angioplasty with placement of drug-eluting stent x1 to proximal LAD, 2.75 x 12 mm; Moderate conscious sedation. She got admitted under Dr Shilo NOEL/Family/Social Past Medical History Medical History: GERD, high cholesterol, hypertension Medications Current Medications Aspirin (Halfprin) 81 mg DAILY PO Last administered on 01/04/19at 08:03; Admin Dose 81 MG; Start 01/04/19 at 09:00 Ticagrelor (Brilinta) 90 mg BID PO Last administered on 01/04/19at 08:04; Admin Dose 90 MG; Start 01/03/19 at 21:00 Acetaminophen (Tylenol Tab) 650 mg Q4H PRN PO PAIN Last administered on 01/04/19at 09:14; Admin Dose 650 MG; Start 01/03/19 at 11:00 Oxycodone/ Acetaminophen (Percocet (5/ 325)) 1 tab Q4H PRN PO PAIN; Start 01/03/19 at 11:00 Diazepam (Valium) 2 mg Q6H PRN PO RESTLESSNESS; Start 01/03/19 at 11:00 Al Hydrox/Mg Hydrox/Simethicone (Mag-Al Plus) 30 ml Q4H PRN PO GASTROINTESTINAL UPSET; Start 01/03/19 at 11:00 Ondansetron HCl (Zofran Inj) 4 mg Q4H PRN IV NAUSEA AND/OR VOMITING; Start 01/03/19 at 11:00 Atorvastatin Calcium (Lipitor) 80 mg QHS PO ; Start 01/04/19 at 21:00 Pantoprazole (Protonix Tab) 40 mg DAILY@06 PO ; Start 01/05/19 at 06:00 Coded Allergies: No Known Allergy (Unverified , 05/13/17) Social History Smoking Status: Never smoker Exam/Review of Systems Vital Signs Vitals Vital Signs Date Temp Pulse Resp B/P (MAP) Pulse Ox O2 O2 Flow FiO2 Time Delivery Rate 01/04/19 98.6 61 12 114/54 100 Room Air 12:00 (74) Intake and Output 01/03/19 01/03/19 01/04/19 1515:00 23:00 07:00 IntakeIntake Total 600 ml 240 ml 420 ml OutputOutput Total 1200 ml 400 ml 400 ml BalanceBalance -600 ml -160 ml 20 ml Exam Constitutional: alert, well developed Psych: nl mood/affect Eyes: nl lids, nl sclera ENMT: nl external ears & nose Respiratory: clear to auscultation Cardiovascular: nl pulses, other (s1s2) Gastrointestinal: soft, non-tender Musculoskeletal: nl extremities to inspection Extremities: normal pulses Neurological: nl speech Skin: nl turgor Lymph: nontender HILLARY RIVERA Jan 04, 2019 13:35
--- NOTE | 2019-01-04 13:37 | DS ---
Date/Time of Note Date/Time of Note DATE: 01/04/19 TIME: 13:36 Discharge Summary Admission/Discharge Info Admit Date/Time Jan 03, 2019 at 15:41 Discharge Date/Time Patient Condition: Stable Hx of Present Illness BRIEF HISTORY AND HOSPITAL COURSE: Ms. Hagan is a 58-year-old female with history of hypertension, dyslipidemia, coronary artery disease, status post prior PTCA and stent placed in the LAD and circumflex in 2017, who presented with recurrent complaints of substernal chest pain and placed in the ascending medical therapy but continued to have chest pain directly brought to cardiac catheterization lab in order to assess for the possibility of recurrent significant obstructive coronary artery disease lending to symptoms of chest pain and positive stress test findings. She underwent Left heart catheterization; Coronary angiography; Percutaneous transluminal coronary angioplasty with placement of drug-eluting stent x1 to proximal LAD, 2.75 x 12 mm; Moderate conscious sedation. She got admitted under Dr [facility] Reported Medications Aspirin (Low Dose Aspirin) 81 Mg Tablet.dr, 81 MG PO DAILY, #30 TAB 01/03/19 Isosorbide Dinitrate* (Isosorbide Dinitrate*) 20 Mg Tablet, 20 MG PO TID, TAB 01/03/19 Atorvastatin* (Atorvastatin*) 80 Mg Tablet, 80 MG PO QHS, #30 TAB 01/03/19 Famotidine* (Famotidine*) 40 Mg/5 Ml Oral.susp, 40 MG PO HS, #150 ML 01/03/19 Ticagrelor* (Brilinta*) 90 Mg Tablet, 90 MG PO Q12, TAB 01/03/19 Metoprolol Succinate* (Toprol XL*) 25 Mg Tab.sr.24h, 25 MG PO DAILY, #30 TAB 01/03/19 Discontinued Reported Medications Aspirin (Aspir-Low) 81 Mg Tablet.dr, 81 MG PO DAILY 05/13/17 Discontinued Scripts Pantoprazole* (Pantoprazole*) 40 Mg Tablet.dr, 40 MG PO BID@06,18 for 30 Days, #60 TAB take one tablet twice a day by mouth Prov:CORETTA SUTTON MD 05/22/17 Metoprolol Tartrate* (Lopressor*) 25 Mg Tab, 25 MG PO BID for 30 Days, #60 TAB Take one tablet twice a day by mouth Prov:CORETTA SUTTON MD 9/10/17 Nitroglycerin* (Nitrostat*) 0.4 Mg Tab.subl, 1 TAB SL Q5M PRN for ANGINA for 30 Days, #90 TAB Take every 5 minutes as needed for chest pain relief Prov:CORETTA SUTTON MD 05/22/17 Isosorbide Dinitrate* (Isosorbide Dinitrate*) 20 Mg Tablet, 20 MG PO TID for 30 Days, #90 TAB Take one tablet three times a day by mouth Prov:CORETTA SUTTON MD 05/22/17 Atorvastatin* (Atorvastatin*) 80 Mg Tablet, 80 MG PO HS for 30 Days, #30 TAB take one tablet daily at night Prov:CORETTA SUTTON MD 05/22/17 Ticagrelor* (Brilinta*) 90 Mg Tablet, 90 MG PO BID for 30 Days, #30 TAB Take one tablet daily by mouth Prov:CORETTA SUTTON MD 05/22/17 Follow-up Plan PMD & political scientist in 1-2 weeks Primary Care Provider [facility] Pending Labs Laboratory Tests Test 01/04/19 04:46 01/04/19 11:32 White Blood Count 4.7 10^3/ul (4.8-10.8) Red Blood Count 3.06 10^6/ul (4.20-5.40) Hemoglobin 10.2 g/dl (12.0-16.0) Hematocrit 31.6 % (37.0-47.0) Mean Corpuscular Volume 103.3 fl (82.0-101.0) Mean Corpuscular 33.3 pg (29.0-33.0) Hemoglobin Mean Corpuscular 32.3 g/dl (32.0-37.0) Hemoglobin Concent Red Cell Distribution 12.1 % (11.5-14.5) Width Platelet Count 179 10^3/UL (140-415) Mean Platelet Volume 9.6 fl (7.4-10.4) Immature Granulocytes % 0.200 % (0.001-0.429) Neutrophils % 49.6 % (39.0-77.0) Lymphocytes % 38.9 % (15.0-51.0) Monocytes % 9.2 % (0.0-11.0) Eosinophils % 1.7 % (0.0-7.0) Basophils % 0.4 % (0.0-2.0) Nucleated Red Blood Cells 0.0 /100WBC (0.0-0.0) % Immature Granulocytes # 0.010 10^3/ul (0.0-0.031) Neutrophils # 2.3 10^3/ul (1.6-7.5) Lymphocytes # 1.8 10^3/ul (0.8-2.9) Monocytes # 0.4 10^3/ul (0.3-0.9) Eosinophils # 0.1 10^3/ul (0.0-0.5) Basophils # 0.0 10^3/ul (0.0-0.1) Nucleated Red Blood Cells 0.0 10^3/ul (0.0-0.0) # Sodium Level 143 mmol/L (135-144) Potassium Level 3.7 mmol/L (3.5-5.1) Chloride Level 112 mmol/L (97-110) Carbon Dioxide Level 24 mmol/L (21-31) Anion Gap 7 (5-13) Blood Urea Nitrogen 14 mg/dl (7-20) Creatinine 0.71 mg/dl (0.44-1.00) Est Glomerular Filtrat > 60 mL/min (>60) Rate mL/min Glucose Level 93 mg/dl (70-220) Calcium Level 9.3 mg/dl (8.4-10.2) Creatine Kinase 115 IU/L (23-200) Creatine Kinase Index 0.8 Creatinine Kinase MB 0.91 ng/ml (0.0-2.4) (Mass) Troponin I 0.127 ng/ml (0.000-0.120) Microbiology Date/Time Source Procedure Growth Status 01/03/19 21:00 Nares MRSA Screen - Preliminary Screening in process Resulted HILLARY RIVERA Jan 04, 2019 13:36
--- NOTE | 2019-01-04 14:16 | HP ---
Date/Time of Note Date/Time of Note DATE: 01/04/19 TIME: 13:10 Assessment/Plan VTE Prophylaxis Risk score (from Nsg)>0 risk: 1 SCD applied (from Nsg): No Lines/Catheters IV Catheter Type (from Nrsg): Saline Lock Urinary Cath still in place: No Assessment/Plan Assessment/Plan - Recurrent chest pain ; ruled out ACS- none at present - sp Left heart catheterization. - sp Coronary angiography. - sp Percutaneous transluminal coronary angioplasty with placement of drug- eluting stent x1 to proximal LAD, 2.75 x 12 mm. - admit to ICU - pain control - hypertension - dyslipidemia - coronary artery disease - status post prior PTCA and stent placed in the LAD and circumflex in 2017 - GERD - Sp EGD Result Diagram: 01/04/19 0446 01/04/19 0446 Results 24hrs Laboratory Tests Test 01/04/19 04:46 01/04/19 11:32 White Blood Count 4.7 #L Red Blood Count 3.06 L Hemoglobin 10.2 L Hematocrit 31.6 L Mean Corpuscular Volume 103.3 H Mean Corpuscular Hemoglobin 33.3 H Mean Corpuscular Hemoglobin Concent 32.3 Red Cell Distribution Width 12.1 Platelet Count 179 Mean Platelet Volume 9.6 Immature Granulocytes % 0.200 Neutrophils % 49.6 Lymphocytes % 38.9 Monocytes % 9.2 Eosinophils % 1.7 Basophils % 0.4 Nucleated Red Blood Cells % 0.0 Immature Granulocytes # 0.010 Neutrophils # 2.3 Lymphocytes # 1.8 Monocytes # 0.4 Eosinophils # 0.1 Basophils # 0.0 Nucleated Red Blood Cells # 0.0 Sodium Level 143 Potassium Level 3.7 Chloride Level 112 H Carbon Dioxide Level 24 Anion Gap 7 Blood Urea Nitrogen 14 Creatinine 0.71 Est Glomerular Filtrat Rate mL/min > 60 Glucose Level 93 Calcium Level 9.3 Creatine Kinase 115 Creatine Kinase Index 0.8 Creatinine Kinase MB (Mass) 0.91 Troponin I 0.127 *H HPI/ROS Admit Date/Time Admit Date/Time Jan 03, 2019 at 15:41 Hx of Present Illness Ms. Hagan is a 58-year-old female with history of hypertension, dyslipidemia, coronary artery disease, status post prior PTCA and stent placed in the LAD and circumflex in 2017, who presented with recurrent complaints of substernal chest pain and placed in the ascending medical therapy but continued to have chest pain directly brought to cardiac catheterization lab in order to assess for the possibility of recurrent significant obstructive coronary artery disease lending to symptoms of chest pain and positive stress test findings. Today she underwent Left heart catheterization ; Coronary angiography; Percutaneous transluminal coronary angioplasty with placement of drug-eluting stent x1 to proximal LAD, 2.75 x 12 mm. She is admitted under Dr NOEL/Family/Social Past Medical History Medical History: coronary artery disease, GERD, hypertension Medications Current Medications Aspirin (Halfprin) 81 mg DAILY PO Last administered on 01/04/19at 08:03; Admin Dose 81 MG; Start 01/04/19 at 09:00 Ticagrelor (Brilinta) 90 mg BID PO Last administered on 01/04/19at 08:04; Admin Dose 90 MG; Start 01/03/19 at 21:00 Acetaminophen (Tylenol Tab) 650 mg Q4H PRN PO PAIN Last administered on 01/04/19at 09:14; Admin Dose 650 MG; Start 01/03/19 at 11:00 Oxycodone/ Acetaminophen (Percocet (5/ 325)) 1 tab Q4H PRN PO PAIN; Start 01/03/19 at 11:00 Diazepam (Valium) 2 mg Q6H PRN PO RESTLESSNESS; Start 01/03/19 at 11:00 Al Hydrox/Mg Hydrox/Simethicone (Mag-Al Plus) 30 ml Q4H PRN PO GASTROINTESTINAL UPSET; Start 01/03/19 at 11:00 Ondansetron HCl (Zofran Inj) 4 mg Q4H PRN IV NAUSEA AND/OR VOMITING; Start 01/03/19 at 11:00 Coded Allergies: No Known Allergy (Unverified , 05/13/17) Social History Smoking Status: Never smoker Exam/Review of Systems Vital Signs Vitals Vital Signs Date Temp Pulse Resp B/P (MAP) Pulse Ox O2 O2 Flow FiO2 Time Delivery Rate 01/04/19 98.6 61 12 114/54 100 Room Air 12:00 (74) Intake and Output 01/03/19 01/03/19 01/04/19 1515:00 23:00 07:00 IntakeIntake Total 600 ml 240 ml 420 ml OutputOutput Total 1200 ml 400 ml 400 ml BalanceBalance -600 ml -160 ml 20 ml HILLARY RIVERA Jan 04, 2019 13:21
--- NOTE | 2019-01-04 14:57 | DS ---
DATE OF ADMISSION: 01/03/2019 DATE OF DISCHARGE: 01/04/2019 DISCHARGE MEDICATIONS: 1. Aspirin 81 mg once a day. 2. Lipitor 40 mg once a day. 3. Pepcid 40 mg once a day. 4. Isosorbide 20 mg t.i.d. 5. Metoprolol XL 25 mg once a day. 6. Brilinta 90 mg b.i.d. FOLLOWUP: The patient is to follow up with PMD and cardiology in 1 to 2 weeks. DIET: Low fat, low cholesterol. ACTIVITY: As tolerated, but to increase slowly. DISCHARGE DIAGNOSES: 1. Single vessel obstructive coronary artery disease involving proximal LAD, status post PTCA and st ent placement with drug-eluting stent. The patient was also noted to have widely patent proximal LAD stent and widely patent proximal circumflex stent. 2. Hypertension. 3. Dyslipidemia. REASON FOR ADMISSION AND REASON FOR ADMISSION: The patient is a 58-year-old female with history of c oronary artery disease, status post non-ST elevation NE back in 05/2017, status post percutaneous PCI of LAD. The patient is being followed by Dr. Dee as an outpatient and was noted to have subster nal chest pain despite optimizing medical treatment. The patient was brought into hospital on the da y of admission and underwent left heart catheterization and underwent PCI and placement of drug-eluti ng stent to proximal LAD. The patient this morning denies any chest pain. No shortness of breath. No reported bleeding. The patient's right radial artery was used for cardiac catheterization. Denie s any numbness, tingling or weakness in the right hand. The patient does not have any fever or chill s. No reported nausea, vomiting or diarrhea. PHYSICAL EXAMINATION: GENERAL: Revealed the patient to be awake, alert. VITAL SIGNS: Temperature 98.6, pulse 61, respirations 12, blood pressure 114/54, O2 sat is 100% on r oom air. HEENT: No eye discharge or redness. Conjunctivae and lids are normal. Oropharynx is clear. NECK: Supple. No mass, thyromegaly. CHEST: Fairly clear. CARDIOVASCULAR: S1, S2 normal. No murmur. ABDOMEN: Soft, nondistended, nontender. Bowel sounds are plus. EXTREMITIES: No leg edema. NEUROLOGIC: The patient is awake, alert, oriented with no gross focal deficit. LABORATORY DATA: WBC 4.7, hemoglobin 10.2, platelet 179, the patient MCV is 103. Chemistry: Sodium 143, potassium 3.7, BUN 14, creatinine 0.7. LDL 42. The patient has chronic anemia with mild macrocytosis. The patient has been advised to follow up wit h her PMD for further workup of anemia. Condition on discharge is stable. Plan of care was discusse d with the nursing staff. The patient has been seen by Dr. Dee today and was cleared for dischar ge. Dictated By: ELLIOTT EUGENE MD AB/NTS Conf#: [id number] DID#: [id number] CC: LUCRECIA DEE MD;*EndCC*
--- NOTE | 2019-01-04 15:53 | RADRPT ---
Vent Rate: 65 bpm RR Interval: [address] Interval: 154 msec QRS Duration: 78 msec QT Interval: 399 msec QTC Interval: 415 msec P-R-T [place]: 51 - 25 - 54 degrees Sinus rhythm...normal P axis, V-rate 50- 99 Electronically Signed By: Von Smith
--- NOTE | 2019-01-04 15:56 | RADRPT ---
Vent Rate: 69 bpm RR Interval: 868 msec NV Interval: 141 msec QRS Duration: 77 msec QT Interval: 402 msec QTC Interval: 431 msec P-R-T [place]: 52 - 29 - 58 degrees Sinus rhythm...normal P axis, V-rate 50- 99 Electronically Signed By: Von Smtih
[2019-01-04] MEDS ORDERED: ATORVASTATIN 80 MG TAB PO SCH (21:00)
[2019-01-05] MEDS ORDERED: PANTOPRAZOLE (EC) 40 MG TAB PO SCH ×2 (06:00)
== END 2019-01-04 14:53 | disposition home or self-care (01) ==
LOC: SDS 07:36 → CCL 07:36 → TEL 15:41 → ICU 19:42
PROVIDERS: ADMIT Internal Medicine; ATTEND Internal Medicine
DX: I25.110 Atherosclerotic heart disease of native coronary artery with unstable angina pectoris (principal); I10 Essential (primary) hypertension; E78.5 Hyperlipidemia, unspecified; Z95.5 Presence of coronary angioplasty implant and graft; D64.9 Anemia, unspecified; D75.89 Other specified diseases of blood and blood-forming organs; K21.9 Gastro-esophageal reflux disease without esophagitis; Z79.82 Long term (current) use of aspirin
CPT/HCPCS: 71045; 80048; 80061; 82550; 82553; 84484; 85025; 85610; 85730; 87081; 92928; 93005; 93458; C1725; C1874; C1887; Z7500; Z7610; 99217; G0378